=== PATIENT | male | born 1970 ===

== ENCOUNTER 2018-02-07 16:02 | Inpatient (IN) | payer MEDICARE, OTHER ==
[2018-02-07 16:33] VITALS: BMI 27.6
--- NOTE | 2018-02-07 17:16 | ED PDOC ---
Arrival/HPI - General Historian: Patient <Aiyana Farnsworth - Last Filed: 02/08/18 02:54> <Randall Vicente - Last Filed: 02/11/18 18:26> - General Chief Complaint: Psychiatric Evaluation Time Seen by Provider: 02/07/18 16:46 - History of Present Illness Narrative History of Present Illness (Text): 02/07/18 17:53 47yr old male with hx of left great toe amputation 6 days ago presents today c/ o depression with SI. pt states he is depressed because he just had his toe amputated. pt states he has hx of depression in the past. Per staff, pt has been aggressive and c/o depression. pt denies cp or sob. no vomiting/diarrhea. no dizziness or weakness. no abdominal pain. no other complaints. (Aiyana Farnsworth) Past Medical History - Provider Review Nursing Documentation Reviewed: Yes - Travel History Have you recently traveled outside US w/in the past 3 mons?: No - Infectious Disease Hx of Infectious Diseases: MRSA - Cardiac Hx Cardiac Disorders: Yes Hx Hypertension: Yes - Pulmonary Hx Respiratory Disorders: No - Neurological Hx Neurological Disorder: No - HEENT Hx HEENT Disorder: No - Renal Hx Renal Disorder: No - Endocrine/Metabolic Hx Endocrine Disorders: Yes Hx Diabetes Mellitus Type 2: Yes - Hematological/Oncological Hx Blood Disorders: No - Integumentary Hx Dermatological Disorder: No - Musculoskeletal/Rheumatological Hx Musculoskeletal Disorders: No - Gastrointestinal Hx Gastrointestinal Disorders: No - Genitourinary/Gynecological Hx Genitourinary Disorders: No - Psychiatric Hx Psychophysiologic Disorder: Yes Hx Anxiety: Yes Hx Bipolar Disorder: Yes Hx Depression: Yes Hx Hallucinations: Yes Hx Substance Use: No Other/Comment: Schizoaffective disorder - Surgical History Hx Orthopedic Surgery: Yes (right shoulder) Other/Comment: great toe of left foot 01/2018 - Anesthesia Hx Anesthesia: Yes Hx Anesthesia Reactions: No <Aiyana Farnsworth - Last Filed: 02/08/18 02:54> Family/Social History - Physician Review Nursing Documentation Reviewed: Yes Family/Social History: Unknown Family HX Smoking Status: Light Smoker < 10 Cigarettes Daily Hx Alcohol Use: Yes Frequency of alcohol use: Few days per week Hx Substance Use: No <Aiyana Farnsworth - Last Filed: 02/08/18 02:54> Allergies/Home Meds <Aiyana Farnsworth - Last Filed: 02/08/18 02:54> <Randall Vicente - Last Filed: 02/11/18 18:26> Allergies/Adverse Reactions: Allergies almond Allergy (Verified 02/07/18 16:54) ITCHING apple Allergy (Verified 02/07/18 16:53) ITCHING nut - unspecified Allergy (Verified 02/07/18 16:54) ITCHING unable to carlos chestnuts walnut Allergy (Verified 02/07/18 16:54) ITCHING Home Medications: Home Meds Medication Instructions Recorded Confirmed Acetaminophen [Tylenol 325mg tab] 650 mg PO Q4 PRN 02/07/18 02/07/18 Meropenem [Merrem IV] 1 gm .ROUTE Q8 02/07/18 02/08/18 Metformin HCl [Glucophage] 1,000 mg PO BID 02/07/18 02/07/18 Percocet 5/325 mg Tab 5 - 325 mg PO Q6 PRN 02/07/18 02/07/18 Percocet 5/325 mg Tab 5 - 325 mg PO Q6 PRN 02/07/18 02/07/18 SITagliptin [Januvia] 100 mg PO DAILY 02/07/18 02/07/18 Vancomycin [Vancomycin Inj] 1 gm IV Q12 02/07/18 02/07/18 Insulin Glargine,Hum.rec.anlog 10 units SUBCUT 02/08/18 02/08/18 Review of Systems - Review of Systems Constitutional: absent: Fatigue, Fevers Respiratory: absent: SOB, Cough Cardiovascular: absent: Chest Pain, Palpitations Gastrointestinal: absent: Abdominal Pain, Nausea, Vomiting Musculoskeletal: Arthralgias (toe pain with hx of surgery 6 days ago. ). absent: Back Pain, Neck Pain Skin: absent: Rash, Pruritis Neurological: absent: Headache, Dizziness Psychiatric: absent: Anxiety, Depression, Suicidal Ideation <Aiyana Farnsworth - Last Filed: 02/08/18 02:54> Physical Exam Vital Signs Reviewed: Yes Temperature: Afebrile Blood Pressure: Normal Pulse: Regular Respiratory Rate: Normal Appearance: Positive for: Well-Appearing, Non-Toxic, Comfortable Pain Distress: None Mental Status: Positive for: Alert and Oriented X 3 - Systems Exam Head: Present: Atraumatic Mouth: Present: Moist Mucous Membranes Neck: Present: Normal Range of Motion Respiratory/Chest: Present: Clear to Auscultation, Good Air Exchange. No: Respiratory Distress, Accessory Muscle Use Cardiovascular: Present: Regular Rate and Rhythm, Normal S1, S2. No: Murmurs Abdomen: No: Tenderness Lower Extremity: Present: NORMAL PULSES, Tenderness, Neurovascularly Intact, Other (left great toe amputation with sutures in place; no erythema; pulses intact; ). No: Erythema, Temperature Abnormalties Neurological: Present: Speech Normal Skin: Present: Warm, Dry Psychiatric: Present: Alert, Oriented x 3 <Aiyana Farnsworth - Last Filed: 02/08/18 02:54> Vital Signs Temp Pulse Resp BP Pulse Ox 02/07/18 20:00 87 18 129/79 100 02/07/18 18:23 82 17 125/80 98 02/07/18 16:42 98.0 F 85 18 128/85 99 Medical Decision Making <Aiyana Farnsworth - Last Filed: 02/08/18 02:54> <Randall Vicente - Last Filed: 02/11/18 18:26> ED Course and Treatment: 02/07/18 17:59 Patient is nontoxic well-appearing in no distress vital signs are stable. CBC WNL CMP glucose; 287 Tylenol WNL Salicylate WNL Alcohol level WNL Urine drug screen wnl UA; glucose cxr: wnl ekg: NSR at 82b/m no st elevations, normal axis. pt with pain to left great toe at surgery site; will give percocet for pain. pt is medically cleared for PES evaluation Patient was seen and evaluated by PES screener: Esequiel patient to be admitted for schizophrenia/depression. pt with PICC line; requiring vanco and meropenem for left great toe MRSA infection. case discussed with dr. beal. will admit to medical service with psych consult. Impression; schizophrenia, depression admit med/surg floor 02/08/18 02:54 (Aiyana Farnsworth) - Lab Interpretations Lab Results: 02/07/18 16:25 02/07/18 16:25 Lab Results 02/07/18 18:30: Urine Opiates Screen Positive H, Urine Methadone Screen Negative , Ur Barbiturates Screen Negative, Ur Phencyclidine Scrn Negative, Ur Amphetamines Screen Negative, U Benzodiazepines Scrn Negative, U Oth Cocaine Metabols Negative, U Cannabinoids Screen Negative 02/07/18 18:24: Urine Color Yellow, Urine Appearance Clear, Urine pH 6.5, Ur Specific [place] 1.010, Urine Protein Negative, Urine Glucose (UA) 500 H, Urine Ketones Negative, Urine Blood Negative, Urine Nitrate Negative, Urine Bilirubin Negative, Urine Urobilinogen 0.2, Ur Leukocyte Esterase Negative 02/07/18 16:25: Alcohol, Quantitative < 10 02/07/18 16:25: Salicylates < 1 L, Acetaminophen < 10.0 L 02/07/18 16:25: Sodium 134, Potassium 4.5, Chloride 95 L, Carbon Dioxide 27, Anion Gap 17, BUN 16, Creatinine 0.6 L, Est GFR ( Amer) > 60, Est GFR ( Non-Af Amer) > 60, Random Glucose 278 H, Calcium 9.5, Total Bilirubin 0.4, AST 72 H, ALT 79 H, Alkaline Phosphatase 83, Total Protein 8.1, Albumin 3.8, Globulin 4.3, Albumin/Globulin Ratio 0.9 L 02/07/18 16:25: WBC 8.0, RBC 3.92, Hgb 13.0 L, Hct 37.2 L, MCV 94.9, MCH 33.2, MCHC 34.9, RDW 12.8, Plt Count 299, MPV 11.0, Gran % 50.3, Lymph % (Auto) 37.3 H , Bay % (Auto) 8.5 H, Eos % (Auto) 2.9, Baso % (Auto) 1.0, Gran # 4.01, Lymph # (Auto) 3.0, Bay # (Auto) 0.7 H, Eos # (Auto) 0.2, Baso # (Auto) 0.08 - RAD Interpretation Radiology Orders: 02/07/18 17:01 CHEST PORTABLE [RAD] Stat - Medication Orders Current Medication Orders: Aripiprazole (Abilify) 7 mg PO HS TANGELA Clonazepam (Klonopin) 0.25 mg PO TID PRN; Protocol PRN Reason: Anxiety Last Admin: 02/11/18 11:33 Dose: 0.25 mg Behavioural Document 02/11/18 11:33 LMN (Rec: 02/11/18 11:33 LMN [id number]) Maintenance Maintenance Dose No Nonmedicinal Nonmedicinal Interventions Redirect Therapeutic Communication Activity Give food/fluids Behavior Behavior for Medication: Anxiety Dangers to self/others Hallucinations/paranoid/ delusions/extreme fear Re-Assess: Reassess Psych Meds Document 02/11/18 12:33 LMN (Rec: 02/11/18 17:42 LMN [place] [id number]) Reassess Psych Med Effective Fluoxetine HCl (Prozac) 20 mg PO DAILY [facility] Last Admin: 02/11/18 08:39 Dose: 20 mg Haloperidol (Haldol) 5 mg PO Q6 PRN; Protocol PRN Reason: Hallucinations Last Admin: 02/11/18 17:41 Dose: 5 mg Behavioural Document 02/11/18 17:41 LMN (Rec: 02/11/18 17:41 [place] [id number]) Maintenance Maintenance Dose No Nonmedicinal Nonmedicinal Interventions Redirect Therapeutic Communication Activity Give food/fluids Behavior Behavior for Medication: Anxiety Insulin Human Regular (Humulin R Low) [address] [facility] PRN Reason: Protocol Last Admin: 02/11/18 17:41 Dose: 1 units MAR Blood Glucose Document 02/11/18 17:41 LMN (Rec: 02/11/18 17:42 [place] [id number]) Blood Glucose Finger Stick Blood Glucose (70-120) 168 Subcutaneous Administrations Document 02/11/18 17:41 LMN (Rec: 02/11/18 17:42 [place] [id number]) Injection Site MAR Injection Site Right Arm Charges for Administration # of Subcutaneous Administrations 1 Metformin HCl (Glucophage) 1,000 mg PO BID [facility] Last Admin: 02/11/18 17:42 Dose: 1,000 mg Nicotine (Nicoderm Cq) 1 patch TD DAILY [facility] Last Admin: 02/11/18 10:27 Dose: 1 patch MAR Transdermal Patch Site Document 02/11/18 10:27 LMN (Rec: 02/11/18 10:27 [place] [id number]) Transdermal Patch Site Transdermal Patch Site Left Shoulder Sitagliptin Phosphate (Januvia) 100 mg PO DAILY [facility] Last Admin: 02/11/18 10:27 Dose: 100 mg Discontinued Medications Aripiprazole (Abilify) 2 mg PO HS [facility] Aripiprazole (Abilify) 2.5 mg PO HS [facility] Last Admin: 02/08/18 21:21 Dose: 2.5 mg Behavioural Document 02/08/18 21:21 [facility] (Rec: 02/08/18 21:22 [facility] [id number]) Maintenance Maintenance Dose Yes Re-Assess: Reassess Psych Meds Document 02/08/18 22:21 [facility] (Rec: 02/09/18 06:02 [facility] [id number]) Reassess Psych Med Effective Aripiprazole (Abilify) 5 mg PO HS [facility] Last Admin: 02/10/18 21:37 Dose: 5 mg Behavioural Document 02/10/18 21:37 BN (Rec: 02/10/18 21:37 BN [id number]) Maintenance Maintenance Dose Yes Re-Assess: Reassess Psych Meds Document 02/10/18 22:37 BN (Rec: 02/10/18 23:28 BN [id number]) Reassess Psych Med Effective Fluoxetine HCl (Prozac) 10 mg PO DAILY [facility] Last Admin: 02/09/18 09:13 Dose: 10 mg Fluoxetine HCl (Prozac) 10 mg PO DAILY TANGELA Stop: 02/09/18 11:46 Last Admin: 02/09/18 12:15 Dose: 10 mg Meropenem 1,000 mg/ Sodium (Chloride) 50 mls @ 100 mls/hr IVPB Q8 TANGELA PRN Reason: Protocol Stop: 02/08/18 06:29 Vancomycin HCl (Vancomycin 1gm) 1 gm in 250 mls @ 167 mls/hr IVPB STAT STA PRN Reason: Protocol Stop: 02/07/18 21:42 Last Admin: 02/07/18 22:59 Dose: 167 mls/hr eMAR Start Stop Document 02/07/18 22:59 AD (Rec: 02/07/18 22:59 AD [id number]) Intravenous Solution Start Date 02/07/18 Start Time 22:59 Meropenem 1,000 mg/ Sodium (Chloride) 50 mls @ 100 mls/hr IVPB STAT STA PRN Reason: Protocol Stop: 02/07/18 20:51 Last Admin: 02/07/18 21:01 Dose: 100 mls/hr eMAR Start Stop Document 02/07/18 21:01 AD (Rec: 02/07/18 21:02 AD [id number]) Intravenous Solution Start Date 02/07/18 Start Time 21:02 Vancomycin HCl (Vancomycin 1gm) 1 gm in 250 mls @ 167 mls/hr IVPB Q12H TANGELA PRN Reason: Protocol Last Admin: 02/08/18 07:33 Dose: 167 mls/hr eMAR Start Stop Document 02/08/18 07:33 ESTIMATE CLERK (Rec: 02/08/18 07:33 ESTIMATE CLERK [id number]) Intravenous Solution Start Date 02/08/18 Start Time 07:33 End Date 02/08/18 Meropenem (Merrem Iv 1 Gm Premix) 50 mls @ 100 mls/hr IVPB Q8 TANGELA PRN Reason: Protocol Stop: 02/08/18 14:29 Last Admin: 02/08/18 06:44 Dose: 100 mls/hr eMAR Start Stop Document 02/08/18 06:44 ESTIMATE CLERK (Rec: 02/08/18 06:44 ESTIMATE CLERK [id number]) Intravenous Solution Start Date 02/08/18 Start Time 06:44 End Date 02/08/18 Oxycodone/Acetaminophen (Percocet 5/325 Mg Tab) 1 tab PO STAT STA Stop: 02/07/18 18:29 Last Admin: 02/07/18 18:53 Dose: 1 tab MAR Pain Assessment Document 02/07/18 18:53 SF (Rec: 02/07/18 18:53 SF [id number]) Pain Reassessment Is this a pain reassessment? Yes Sleep Is patient sleeping during reassessment? No Presence of Pain Presence of Pain Yes Oxycodone/Acetaminophen (Percocet 5/325 Mg Tab) 1 tab PO STAT STA Stop: 02/07/18 21:20 Last Admin: 02/07/18 21:45 Dose: 1 tab MAR Pain Assessment Document 02/07/18 21:45 AD (Rec: 02/07/18 21:45 AD [id number]) Pain Reassessment Is this a pain reassessment? No Description Intensity of Pain at present 8 Oxycodone/Acetaminophen (Percocet 5/325 Mg Tab) 1 tab PO STAT STA Stop: 02/08/18 02:09 Last Admin: 02/08/18 02:19 Dose: 1 tab MAR Pain Assessment Document 02/08/18 02:19 ESTIMATE CLERK (Rec: 02/08/18 02:20 ESTIMATE CLERK [id number]) Pain Reassessment Is this a pain reassessment? No Sleep Is patient sleeping during reassessment? No Presence of Pain Presence of Pain Yes Pain Scale Used Pain Scale Used Numeric Location Left, Right or Bilateral Left Pain Location Body Site Foot Description Description Intermittent Intensity of Pain at present 10 Pain Behavior Facial Grimacing Alleviating Factors/Management Medication Techniques Alleviating Factors Medication Oxycodone/Acetaminophen (Percocet 5/325 Mg Tab) 2 tab PO Q6H PRN PRN Reason: Pain, severe (8-10) Stop: 02/11/18 06:32 Last Admin: 02/11/18 06:23 Dose: 2 tab MAR Pain Assessment Document 02/11/18 06:23 BN (Rec: 02/11/18 06:24 [id number]) Pain Reassessment Is this a pain reassessment? No Presence of Pain Presence of Pain Yes Pain Scale Used Pain Scale Used Numeric Location Left, Right or Bilateral Bilateral Pain Location Body Site Foot Description Description Constant Intensity of Pain at present 9 Pain Behavior Restlessness Alleviating Factors/Management Medication Techniques - PA / [employer]OPEWALK ROPE MAKER / Resident Statement MD/DO has reviewed & agrees with the documentation as recorded. <Randall Vicente - Last Filed: 02/11/18 18:26> Disposition/Present on Arrival - Present on Arrival Any Indicators Present on Arrival: Yes History of DVT/PE: No History of Uncontrolled Diabetes: Yes Urinary Catheter: No History of Decub. Ulcer: No History Surgical Site Infection Following: None - Disposition Have Diagnosis and Disposition been Completed?: Yes Disposition Time: 19:00 Patient Plan: Admission <Aiyana Farnsworth - Last Filed: 02/08/18 02:54> <Randall Vicente - Last Filed: 02/11/18 18:26> - Disposition Diagnosis: Schizophrenia, Depression Disposition: HOSPITALIZED Patient Problems: Current Active Problems Problem Status Onset Schizophrenia Acute Depression Acute Condition: FAIR
--- NOTE | 2018-02-07 17:32 | RAD ---
Date of service: 02/07/2018 HISTORY: PES COMPARISON: No prior. FINDINGS: LUNGS: The lungs are well inflated and clear. PLEURA: No significant pleural effusion identified, no pneumothorax apparent. CARDIOVASCULAR: Normal. OSSEOUS STRUCTURES: No significant abnormalities. VISUALIZED UPPER ABDOMEN: Normal. OTHER FINDINGS: None. IMPRESSION: No active pulmonary disease.
[2018-02-07 17:51] LABS: BASO # 0.08 K/mm3 (0.0-2.0); EOS # 0.2 (0.0-0.7); EOS % 2.9 % (1.5-5.0); GRAN # 4.01 (1.4-6.5); GRAN % 50.3 % (50.0-68.0); LYMPH % 37.3 % (22.0-35.0); MEAN CELL VOLUME 94.9 fl (80.0-105.0); MEAN CORPUSCULAR HEMOGLOBIN 33.2 pg (25.0-35.0); MEAN CORPUSCULAR HGB CONC 34.9 g/dl (31.0-37.0); MONO # 0.7 (0.1-0.6); MONO % 8.5 % (1.0-6.0); RBC 3.92 10^6/uL (3.5-6.1); RED CELL DISTRIBUTION WIDTH 12.8 % (11.5-14.5)
[2018-02-07 18:00] LABS: ALB/GLOB RATIO 0.9 (1.1-1.8); ALBUMIN 3.8 g/dL (3.0-4.8); ALT/SGPT 79 U/L (7-56); AST/SGOT 72 U/L (17-59); BLOOD UREA NITROGEN 16 mg/dL (7-21); CALCIUM 9.5 mg/dL (8.4-10.5); GFR AFRICAN-AMERICAN > 60; GFR NON-AFRICAN AMERICAN > 60
[2018-02-07 18:01] LABS: ACETAMINOPHEN < 10.0 ug/ml (10.0-20.0); SALICYLATE < 1 mg/dL (2.0-20.0)
[2018-02-07] MEDS ORDERED: Oxycodone/Acetaminophen 5/325 mg Tab PO STA ×2 (18:28→21:19)
[2018-02-07 18:34] LABS: PH,URINE 6.5 (4.7-8.0); URINE BILIRUBIN NEGATIVE (NEGATIVE); URINE BLOOD NEGATIVE (NEGATIVE); URINE GLUCOSE (UA) 500 mg/dL (NEGATIVE); URINE LEUKOCYTE ESTERASE NEGATIVE Leu/uL (NEGATIVE); URINE PROTEIN NEGATIVE mg/dL (<30 mg/dL); URINE UROBILINOGEN 0.2 E.U./dL (<1 E.U./dL)
[2018-02-07 18:36] LABS: URINE APPEARANCE CLEAR (CLEAR); URINE COLOR YELLOW (YELLOW)
--- NOTE | 2018-02-07 18:48 | CARD ---
APPROVED REPORT Date of service: 02/07/2018 EKG Measurement Heart [id number] <Conclusion> Normal sinus rhythm Normal ECG
[2018-02-07 19:08] LABS: BARBITURATES, UR NEGATIVE (NEGATIVE); BENZODIAZEPINES, UR NEGATIVE (NEGATIVE); OPIATES, UR POSITIVE (NEGATIVE); PHENCYCLIDINE, UR NEGATIVE (NEGATIVE)
[2018-02-07] MEDS ORDERED: Vancomycin 1gm in NS 250ml 1 GM/250 ML BAG IVPB STA (20:13)
[2018-02-08] MEDS ORDERED: Oxycodone/Acetaminophen 5/325 mg Tab PO STA (02:08)
[2018-02-08] MEDS ORDERED: Oxycodone/Acetaminophen 5/325 mg Tab PO PRN (06:28)
[2018-02-08] MEDS ORDERED: Meropenem 500 MG in Sodium Chloride 0.9% 50 ML IVPB SCH (06:30)
[2018-02-08] MEDS ORDERED: Vancomycin 1gm in NS 250ml 1 GM/250 ML BAG IVPB SCH (06:30)
[2018-02-08] MEDS ORDERED: Meropenem IV 1 gm in NS 50 ML IVPB SCH (06:30)
[2018-02-08] MEDS: Oxycodone/Acetaminophen 5/325 mg Tab PO PRN ×3 (06:46→18:23)
[2018-02-08] MEDS: Insulin Reg-LOW-Coverage SC SCH ×4 (08:30→22:18)
[2018-02-09] MEDS: Oxycodone/Acetaminophen 5/325 mg Tab PO PRN ×3 (00:23→18:11)
--- NOTE | 2018-02-09 01:44 | CON ---
Copied To: Darrin Arceo MD Attending MD: Darrin Arceo MD DATE: 02/08/2018 CHIEF COMPLAINT: Left big toe infection x3 weeks duration. HISTORY OF PRESENT ILLNESS: This is a 47-year-old male with past medical history significant for diabetes mellitus, hypertension and high cholesterol with anxiety, alcohol abuse, history of depression, bipolar and panic disorder, history of right shoulder surgery and was admitted through the Emergency Room was seen by Aiyana Farnsworth. In the Emergency Room, the patient had stated that he had a left great toe amputation six days ago and complaining of depression and Infectious Disease consultation requested. REVIEW OF SYSTEMS: A 12-point review of systems is performed. There are no fevers, no chills, no nausea, no vomiting and no abdominal pain, diarrhea or constipation. No dysuria. PAST MEDICAL HISTORY: Significant for diabetes mellitus, hypertension, high cholesterol, anxiety, depression, bipolar, panic, alcohol abuse and tobacco abuse. PAST SURGICAL HISTORY: Significant for right shoulder surgery. ALLERGIES: THE PATIENT HAS NO KNOWN ALLERGIES TO ANTIBIOTICS. HE IS ALLERGIC TO ALMOND, APPLES, NUTS AND WALNUTS. PHYSICAL EXAMINATION: VITAL SIGNS: The patient is in bed with a temperature of 97, blood pressure is 116/80, respiratory rate of 18, heart rate of 85. HEENT: Examination is unremarkable. NECK: Supple. LUNGS: Have decreased breath sounds. HEART: Normal S1, S2. ABDOMEN: Soft, nontender. EXTREMITIES: On examination of right foot, there is an ulcer at the base of his right foot. On examination of the big toe of the left foot, surgical site appears to be clean. DATA: Laboratory examination reveals a white count of 8000, hemoglobin of 13, platelets of 299. Chemistries reveal a BUN of 16, creatinine of 0.6, LFT elevations. Urinalysis is unremarkable and the patient does have opiates. No other Microbiology is available. The patient also had a chest x-ray, which is reported to be negative. The patient also had an EKG that showed a QTc of 450. ASSESSMENT AND PLAN: This is a 47-year-old male with: 1. Status post amputation of the left big toe, site appears to be clean and no evidence of any infection at this site with no fevers, no chills, no erythema. It would be ideal to obtain a pathology report from the amputation site if possible Hospital where an amputation was done. The patient has never been in [facility]. We will order a sedimentation rate, C-reactive protein and HIV test. We will hold off on the antibiotics for now. Recommend to obtain pathology report from the surgical site, order for hospital he was in, recommended podiatric consultation. We will hold off any antibiotics at this time since there are no obvious site. The wound a appears to be clean and dry. We will follow with you. Darrin Arceo MD
--- NOTE | 2018-02-09 08:10 | CON ---
Copied To: Diego Lo MD Attending MD: Diego Lo MD DATE: 02/08/2018 HISTORY OF PRESENT ILLNESS: The patient is a 47-year-old single male with a history of schizoaffective disorder and a history of prior psychiatric hospitalizations. Current outpatient psychiatric treatment with Dr. Schultz and was in [place] for the last one month though not compliant with medications, who has been seen on the medical floor with IV antibiotics after just having his toe amputated secondary to depression, agitation, and hallucinations. I met with the patient at bedside and he is calm, cooperative, alert and well oriented to year location circumstances. The patient confirms that he has been depressed and hearing voices. The voices tell him to symptoms of low mood, , low energy, anxiety, crying spells, feeling easily overwhelmed and currently denies having any suicidal thoughts. However, he does have a history of multiple suicide attempts in the past. Main issues are his medical issues likely financial. The patient also is unhappy with where he was getting his IV antibiotics. Presently, he is agreeable to start psychiatric medications for his symptoms and we discussed initiation of Prozac, Klonopin and Abilify. His thought process is currently coherent and he does not appear to be responding to internal stimuli and demonstrates fair insight and judgement. SOCIAL HISTORY: The patient is born in [place], 9 months mostly he was there. He is not , he has no children. He lives with his ex-girlfriend. However, he has been living nurses at home because he requires IV antibiotic for toe amputation. 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 Denies issues with alcohol and drugs. PSYCHIATRIC HISTORY: The patient injections with insulin and he also calf scar was noted by this provider. The patient is on relevant psychiatric medications at this time. Vital signs and labs were reviewed. IMPRESSION: Schizoaffective disorder, current episodes with psychotic symptoms. RECOMMENDATIONS: 1. We will start Prozac for depression and anxiety 10 mg p.o. daily, I have reviewed indication, dozing, therapeutic latency and possible side effects with patient today. 2. I will start Abilify 10 mg at bedtime to augment Prozac for depression as well as target history of hallucination in the patient and also to help with mood control. I reviewed indications and possible side effects including metabolic syndrome with the patient today. 3. I will start low dose Klonopin 0.25 mg p.o. three times a day p.r.n. for anxiety to during the initial part of prescribing this medications. 4. I will continue to follow with the patient on the medical floor and evaluate tolerance to medications as well as symptoms. Diego Lo MD
[2018-02-09] MEDS: Insulin Reg-LOW-Coverage SC SCH ×3 (08:37→16:58)
--- NOTE | 2018-02-09 08:43 | HP ---
02/08/18 Copied To: Li Siddiqi MD Attending MD: Li Siddiqi MD CHIEF COMPLAINT: Depression. HISTORY OF PRESENT ILLNESS: Mr. Martinez is a 47-year-old male with a history of left great toe amputation 6 days ago, came to the emergency room, complaining about depression because he just had the toe amputated. He states that he has a history of degenerative joint disease in the past, had aggressive treatment, complaining about depression. Patient denies chest pain or shortness of breath. No nausea, vomiting, or diarrhea. No fever. No chills. No headache. No dizziness. PAST MEDICAL HISTORY: As above, history of MRSA, hypertension, diabetes mellitus type 2, anxiety, schizophrenia, right shoulder pain, great toe of left foot amputation. FAMILY HISTORY: Father and mother, noncontributory. HABITS: Light smoker, less than 10 cigarettes. Alcohol, yes. Substance abuse, no. ALLERGIES: ALLERGIC WITH ALMOND ALLERGY, APPLE ALLERGY, UNSPECIFIED ALLERGIES, WALNUT ALLERGIES. HOME MEDICATIONS: Tylenol, Merrem, Glucophage, Percocet, Januvia, verapamil, insulin. REVIEW OF SYSTEMS: Patient was seen and examined on the bedside, looking comfortable except for pain in the toe. Depression is better, shortness of breath and cough is better. tired. No fever. No chills. Abdominal pain, nausea, vomiting negative at this moment. Toe pain, arthralgia, amputation of toe 6 days ago, back pain, rashes, pruritus, headache , dizziness. No anxiety or depression. PHYSICAL EXAMINATION: VITAL SIGNS: Temperature , pulse 85, respiratory rate 18, blood pressure 120/85, pulse oximetry 99. HEENT: Head: Normocephalic, atraumatic. Eyes: PERRLA. Extraocular muscles intact. Conjunctivae clear. Nose patent. Mucous membrane moist. NECK: Supple. No carotid bruit. No JVD or thyromegaly. CHEST: Bilaterally symmetrical. HEART: S1 and S2 positive. LUNGS: Clear to auscultation. ABDOMEN: Soft. Bowel sounds positive. No organomegaly. EXTREMITIES: No edema. No cyanosis. NEUROLOGIC: Patient is awake and alert. Moving all 4 extremities. No focal deficit. LABORATORY DATA: White blood cells 9, hemoglobin 13.3, hematocrit 37.2, platelets 291. Sodium 137, potassium 4.5, BUN 15, creatinine is 0.6, glucose 278. ASSESSMENT AND PLAN: Mr. Martinez is a 47-year-old male with anemia, renal insufficiency, hypochloremia, hyperglycemia, is admitted with depression, schizophrenia. Consult called with . Repeat labs. We will follow up. Li Siddiqi MD MTDD
--- NOTE | 2018-02-09 14:17 | CP.PCM.CON ---
<Jorge,Moisésedisonanna - Last Filed: 02/09/18 14:07> History of Present Illness - History of Present Illness History of Present Illness: Podiatry Consult note: Dr. Coker 47 year old male patient with psychiatric hx was seen and evaluated at bedside 8 days s/p partial hallux amputation on the left and right plantar wound. Patient reports that he had the procedure done by Dr. Angela. Reports that he came to the hospital c/o depression and SI. Patient reports that he follows up with Dr. Angela as an outpatient basis. Patient denies of any pedal complains at this time. Patient denies of any pain to the feet. Denies of recent F/N/V/C/ SOB/CP/headache. Denies of any other pedal complains at this time. Review of Systems - Constitutional Constitutional: As Per HPI Past Patient History - Infectious Disease Hx of Infectious Diseases: MRSA - Past Social History Smoking Status: Light Smoker < 10 Cigarettes Daily - CARDIAC Hx Cardiac Disorders: Yes Hx Hypertension: Yes - PULMONARY Hx Respiratory Disorders: No - NEUROLOGICAL Hx Neurological Disorder: No - HEENT Hx HEENT Problems: No - RENAL Hx Chronic Kidney Disease: No - ENDOCRINE/METABOLIC Hx Endocrine Disorders: Yes Hx Diabetes Mellitus Type 2: Yes - HEMATOLOGICAL/ONCOLOGICAL Hx Blood Disorders: No - INTEGUMENTARY Hx Dermatological Problems: No - MUSCULOSKELETAL/RHEUMATOLOGICAL Hx Musculoskeletal Disorders: No - GASTROINTESTINAL Hx Gastrointestinal Disorders: No - GENITOURINARY/GYNECOLOGICAL Hx Genitourinary Disorders: No - PSYCHIATRIC Hx Psychophysiologic Disorder: Yes Hx Anxiety: Yes Hx Bipolar Disorder: Yes Hx Depression: Yes Hx Hallucinations: Yes Hx Substance Use: No Other/Comment: Schizoaffective disorder - SURGICAL HISTORY Hx Orthopedic Surgery: Yes (right shoulder) Other/Comment: great toe of left foot 01/2018 - ANESTHESIA Hx Anesthesia: Yes Hx Anesthesia Reactions: No Meds Allergies/Adverse Reactions: Allergies Allergy/AdvReac Type Severity Reaction Status Date / Time almond Allergy ITCHING Verified 02/07/18 16:54 apple Allergy ITCHING Verified 02/07/18 16:53 nut - unspecified Allergy ITCHING Verified 02/07/18 16:54 walnut Allergy ITCHING Verified 02/07/18 16:54 - Medications Medications: Current Medications Aripiprazole (Abilify) 5 mg PO HS [facility] Clonazepam (Klonopin) 0.25 mg PO TID PRN; Protocol PRN Reason: Anxiety Last Admin: 02/09/18 08:37 Dose: 0.25 mg Fluoxetine HCl (Prozac) 20 mg PO DAILY [facility] Insulin Human Regular (Humulin R Low) 0 units SC ACHS [facility] PRN Reason: Protocol Last Admin: 02/09/18 12:14 Dose: 3 units Metformin HCl (Glucophage) 1,000 mg PO BID [facility] Last Admin: 02/09/18 09:13 Dose: 1,000 mg Nicotine (Nicoderm Cq) 1 patch TD DAILY [facility] Last Admin: 02/09/18 09:13 Dose: 1 patch Oxycodone/Acetaminophen (Percocet 5/325 Mg Tab) 2 tab PO Q6H PRN PRN Reason: Pain, severe (8-10) Stop: 02/11/18 06:32 Last Admin: 02/09/18 06:10 Dose: 2 tab Sitagliptin Phosphate (Januvia) 100 mg PO DAILY [facility] Last Admin: 02/09/18 09:13 Dose: 100 mg Physical Exam - Constitutional Appears: Well, Non-toxic, No Acute Distress - Extremities Exam Additional comments: VASC: DP/PT pulses are palpable 1/4, Cap refill time: < 3 sec to all digits, Temp gradient: warm to cool from proximal to distal, no pitting or non-pitting edema noted DERM: Surgical site is intact with sutures with no dehiscence, no active drainage, no malodor, no erythema no clinical suspicion of active infection; wound measuring approx 1.5 cm x 1.0 cm on the plantar lateral aspect of the right foot sub metatarsal head 4, wound base is mainly grannular, no active drainage, no malodor, no probe to bone, no clinical suspicion of active infection NEURO: Protective sensation is mildly diminished ORTHO: mild pain on palpation of the plantar wound - Neurological Exam Neurological exam: Alert, Oriented x3 - Psychiatric Exam Psychiatric exam: Normal Affect, Normal Mood Results - Vital Signs Recent Vital Signs: Last Vital Signs Temp 98.2 F 02/09/18 06:00 Pulse 74 02/09/18 06:00 Resp 20 02/09/18 06:00 BP 107/77 02/09/18 06:00 Pulse Ox 95 02/09/18 06:00 - Labs Result Diagrams: 02/07/18 16:25 02/07/18 16:25 Labs: Laboratory Results - last 24 hr 02/08/18 02/08/18 02/08/18 11:25 16:15 20:59 ESR POC Glucose (mg/dL) 279 H 174 H 187 H C-Reactive Protein 02/09/18 02/09/18 02/09/18 06:42 06:45 06:45 ESR 78 H POC Glucose (mg/dL) 258 H C-Reactive Protein 13.30 H 02/09/18 11:41 ESR POC Glucose (mg/dL) 258 H C-Reactive Protein Assessment & Plan - Assessment and Plan (Free Text) Assessment: 47 year old male was evaluated 1). 8 days s/p partial left hallux amp 2). non- infected plantar right foot wound (Monet 1) Plan: Patient seen and evaluated with attending Dr. Coker Labs, vitals and charts reviewed - afebrile, no leukocytosis IV abx as per ID - hx of MRSA Sites cleaned with saline and dressing applied using betadine, DSD Patient to WBAT in surgical shoe Stable from podiatry standpoint Will continue to follow patient while in-house Thank you for the podiatry consult and allowing to take part in patient care - Date & Time Date: 02/09/18 Time: 14:25 <Lukas Coker - Last Filed: 02/09/18 17:08> Meds - Medications Medications: Current Medications Aripiprazole (Abilify) 5 mg PO HS [facility] Clonazepam (Klonopin) 0.25 mg PO TID PRN; Protocol PRN Reason: Anxiety Last Admin: 02/09/18 16:58 Dose: 0.25 mg Fluoxetine HCl (Prozac) 20 mg PO DAILY [facility] Insulin Human Regular (Humulin R Low) 0 units SC ACHS [facility] PRN Reason: Protocol Last Admin: 02/09/18 16:58 Dose: 1 units Metformin HCl (Glucophage) 1,000 mg PO BID [facility] Last Admin: 02/09/18 09:13 Dose: 1,000 mg Nicotine (Nicoderm Cq) 1 patch TD DAILY [facility] Last Admin: 02/09/18 09:13 Dose: 1 patch Oxycodone/Acetaminophen (Percocet 5/325 Mg Tab) 2 tab PO Q6H PRN PRN Reason: Pain, severe (8-10) Stop: 02/11/18 06:32 Last Admin: 02/09/18 06:10 Dose: 2 tab Sitagliptin Phosphate (Januvia) 100 mg PO DAILY [facility] Last Admin: 02/09/18 09:13 Dose: 100 mg Results - Vital Signs Recent Vital Signs: Last Vital Signs Temp 98.2 F 02/09/18 14:00 Pulse 86 02/09/18 14:00 Resp 18 02/09/18 14:00 BP 110/81 02/09/18 14:00 Pulse Ox 100 02/09/18 14:00 - Labs Result Diagrams: 02/07/18 16:25 02/07/18 16:25 Labs: Laboratory Results - last 24 hr 02/08/18 02/09/18 02/09/18 20:59 06:42 06:45 ESR 78 H POC Glucose (mg/dL) 187 H 258 H C-Reactive Protein 02/09/18 02/09/18 02/09/18 06:45 11:41 15:56 ESR POC Glucose (mg/dL) 258 H 170 H C-Reactive Protein 13.30 H Attending/Attestation - Attestation I have personally seen and examined this patient.: Yes I have fully participated in the care of the patient.: Yes I have reviewed all pertinent clinical information: Yes
--- NOTE | 2018-02-09 15:42 | CP.PCM.PN ---
Subjective - Date & Time of Evaluation Date of Evaluation: 02/09/18 Time of Evaluation: 13:50 - Subjective Subjective: Still with pain in the feet, no fevers, not in distress. Objective - Vital Signs/Intake and Output Vital Signs (last 24 hours): Temp Pulse Resp BP Pulse Ox 98.2 F 86 18 110/81 100 02/09/18 14:00 02/09/18 14:00 02/09/18 14:00 02/09/18 14:00 02/09/18 14:00 Intake and Output: 02/09/18 02/09/18 06:59 18:59 Intake Total 860 Balance 860 - Medications Medications: Current Medications Aripiprazole (Abilify) 5 mg PO HS [facility] Clonazepam (Klonopin) 0.25 mg PO TID PRN; Protocol PRN Reason: Anxiety Last Admin: 02/09/18 08:37 Dose: 0.25 mg Fluoxetine HCl (Prozac) 20 mg PO DAILY [facility] Insulin Human Regular (Humulin R Low) 0 units SC ACHS [facility] PRN Reason: Protocol Last Admin: 02/09/18 12:14 Dose: 3 units Metformin HCl (Glucophage) 1,000 mg PO BID [facility] Last Admin: 02/09/18 09:13 Dose: 1,000 mg Nicotine (Nicoderm Cq) 1 patch TD DAILY [facility] Last Admin: 02/09/18 09:13 Dose: 1 patch Oxycodone/Acetaminophen (Percocet 5/325 Mg Tab) 2 tab PO Q6H PRN PRN Reason: Pain, severe (8-10) Stop: 02/11/18 06:32 Last Admin: 02/09/18 06:10 Dose: 2 tab Sitagliptin Phosphate (Januvia) 100 mg PO DAILY [facility] Last Admin: 02/09/18 09:13 Dose: 100 mg - Constitutional Appears: Chronically Ill - Head Exam Head Exam: NORMAL INSPECTION - ENT Exam ENT Exam: Mucous Membranes Moist - Neck Exam Neck Exam: absent: Meningismus - Respiratory Exam Respiratory Exam: Decreased Breath Sounds - Cardiovascular Exam Cardiovascular Exam: +S1, +S2 - GI/Abdominal Exam GI & Abdominal Exam: Soft. absent: Tenderness - Extremities Exam Additional comments: left foot with dressings in place Assessment and Plan - Assessment and Plan (Free Text) Plan: Assessment history of left hallux osteomyelitis S/P amputation 7 days ago DM HTN dyslipidemia anxiety disorder ethanol abuse depression bipolar disorder history of right shoulder surgery Plan Will continue to monitor off antibiotics; recommend to get pathology report of the amputated toe (to check for margins of the bone if they are clear) as per patient, they found MRSA in his left hallux ESR, CRP elevated - recommend to get pathology report of the left hallux check HIV test will monitor clinically
--- NOTE | 2018-02-09 15:42 | CON ---
Copied To: Diego Lo MD Attending MD: Diego Lo MD DATE: 02/09/2018 HISTORY OF PRESENT ILLNESS: The patient is a 47-year-old single male with a history of schizoaffective disorder, who is being treated on the medical floor with IV antibiotics secondary to the patient's toe amputation. Psychiatrist is following the patient since yesterday due to history of depression, hearing voices. At that time, I started Prozac 10 mg daily as well as Abilify 2.5 mg at bedtime and Klonopin p.r.n. The patient reported this is because of the patient's reports of depression and hallucination as well as anxiety. I met with the patient again at bedside this morning and the patient reports some improvement in his symptoms. He denies having any hallucinations in the last 24 hours. He reports of little bit more energy and improved outlook, although he still remains depressed. He denies any hopelessness or suicidal thoughts. He is generally coherent. Responses are consistent with questioning. He denies having any side effects from the medications prescribed and has been cooperative and calm on the medical floor while he has been treated. His affects are constricted; however, there is no reactivity. He does not appear to be responding to internal stimuli and delusions were not elicited. Insight and judgment is improving. MEDICATIONS: Relevant psychiatric medications include Prozac 10 mg daily, Abilify 2.5 mg at bedtime as well as Klonopin 0.25 mg p.o. t.i.d. p.r.n. IMPRESSION: Schizoaffective disorder by history, current episode is depressed with psychotic symptoms. RECOMMENDATIONS: 1. We will increase Prozac to a minimal therapeutic dose of 20 mg daily as the patient tolerated 10 mg yesterday. 2. I will continue Abilify and increase it to 5 mg at bedtime to augment Prozac for depression and target history of hallucination and also to help with mood control. 3. I will continue with Klonopin 0.25 mg p.o. t.i.d. p.r.n. for anxiety. 4. I will continue to follow the patient on the medical floor and evaluate tolerance to medications as well as symptomatology. Diego Lo MD [facility] # [id number]
[2018-02-10] MEDS: Oxycodone/Acetaminophen 5/325 mg Tab PO PRN ×4 (00:15→18:21)
--- NOTE | 2018-02-10 01:47 | PN ---
Copied To: Li Siddiqi MD Attending MD: Li Siddiqi MD DATE: 02/09/2018 SUBJECTIVE: Patient is a 47-year-old male. Patient is seen and examined in his bed in his room. was sitting on the bedside, still has pain in the feet. No fever. No chills. Not in distress. No headache. No dizziness. No hematuria or hematochezia. PHYSICAL EXAMINATION: VITAL SIGNS: Temperature 98.2, pulse 86, respiratory rate 18, blood pressure 110/81, pulse oximetry 100%. HEENT: Head: Normocephalic, atraumatic. Eyes: PERRLA. Extraocular muscles intact. Conjunctivae clear. Nose patent. Mucous membrane moist. NECK: Supple. No carotid bruit, JVD, or thyromegaly. CHEST: Bilaterally symmetrical. HEART: S1 and S2 positive. LUNGS: Clear to auscultation. ABDOMEN: Soft. Bowel sounds present. No organomegaly. EXTREMITIES: No edema. No cyanosis. NEUROLOGIC: Patient is awake and alert. Moving all four extremities. No focal deficit. MEDICATIONS: Abilify, Klonopin, Prozac, insulin, Glucophage, Nicoderm, Percocet, and Januvia. LABORATORY DATA: White blood cells 8, hemoglobin 13, hematocrit 37.2, platelets 299. Glucose 170, 258, 258. C-reactive protein is 13.3. Urine has glucose. ASSESSMENT AND PLAN: Mr. Henrry Martinez is a 47-year-old male with anemia; diabetes mellitus, uncontrolled; glucosuria; opioids positive in the toxicology. Rapid plasma reagin negative. Seen by the ID, Dr. Jewel Champagne. History of left hallux osteomyelitis, status post amputation 7 days ago; diabetes mellitus; hypertension; dyslipidemia; anxiety disorder, ethanol abuse, depression; bipolar; history of right shoulder surgery and according to ID, continue monitoring of antibiotics. Recommended to get Pathology report of the amputating the toes to check for markings of the bone if they are clear. According to patient, they found Methicillin-resistant Staphylococcus aureus in the left hallux. Erythrocyte sedimentation rate and C-reactive protein elevated. Recommended to get Pathology report of the left hallux valgus. Check human immunodeficiency virus status. Waiting for ID input about getting report from the facility. Seen by the Podiatry, Dr. Lukas Coker and Psych, Dr. Diego Lo. GI and deep vein thrombosis prophylaxes. Repeat labs. Discussion done with the patient's and patient. All questions answered. Li Siddiqi MD [id number]
[2018-02-10 06:54] LABS: HEMOGLOBIN 12.3 g/dL (14.0-18.0); MEAN CELL VOLUME 94.2 fl (80.0-105.0); MEAN CORPUSCULAR HEMOGLOBIN 32.5 pg (25.0-35.0); MEAN CORPUSCULAR HGB CONC 34.6 g/dl (31.0-37.0); MEAN PLATELET VOLUME 10.2 fl (7.0-11.0); RBC 3.78 10^6/uL (3.5-6.1); RED CELL DISTRIBUTION WIDTH 12.3 % (11.5-14.5)
[2018-02-10 07:08] LABS: BLOOD UREA NITROGEN 12 mg/dL (7-21); CALCIUM 9.1 mg/dL (8.4-10.5); GFR AFRICAN-AMERICAN > 60; GFR NON-AFRICAN AMERICAN > 60
--- NOTE | 2018-02-10 08:27 | CP.PCM.PN ---
<JorgeMoisésedisonanna - Last Filed: 02/10/18 08:22> Subjective - Date & Time of Evaluation Date of Evaluation: 02/10/18 Time of Evaluation: 08:22 - Subjective Subjective: Podiatry progress note: Dr. Coker 47 year old male patient was seen and evaluated at bedside 9 days s/p partial hallux amputation on the left and right plantar wound. Patient is AAOx3 and denies of any acute overnight events. No acute pain to bilateral LE. Denies of recent F/N/V/C/SOB/CP/headache. Denies of any other pedal complains at this time. Objective - Vital Signs/Intake and Output Vital Signs (last 24 hours): Temp Pulse Resp BP Pulse Ox 98.4 F 90 18 106/74 94 L 02/09/18 21:23 02/09/18 21:23 02/09/18 21:23 02/09/18 21:23 02/09/18 21:23 Intake and Output: 02/10/18 02/10/18 06:59 18:59 Intake Total 820 Output Total 1 Balance 819 - Medications Medications: Current Medications Aripiprazole (Abilify) 5 mg PO HS [facility] Last Admin: 02/09/18 22:12 Dose: 5 mg Clonazepam (Klonopin) 0.25 mg PO TID PRN; Protocol PRN Reason: Anxiety Last Admin: 02/09/18 16:58 Dose: 0.25 mg Fluoxetine HCl (Prozac) 20 mg PO DAILY [facility] Insulin Human Regular (Humulin R Low) 0 units SC ACHS [facility] PRN Reason: Protocol Last Admin: 02/09/18 16:58 Dose: 1 units Metformin HCl (Glucophage) 1,000 mg PO BID [facility] Last Admin: 02/09/18 18:12 Dose: 1,000 mg Nicotine (Nicoderm Cq) 1 patch TD DAILY [facility] Last Admin: 02/09/18 09:13 Dose: 1 patch Oxycodone/Acetaminophen (Percocet 5/325 Mg Tab) 2 tab PO Q6H PRN PRN Reason: Pain, severe (8-10) Stop: 02/11/18 06:32 Last Admin: 02/10/18 05:35 Dose: 2 tab Sitagliptin Phosphate (Januvia) 100 mg PO DAILY [facility] Last Admin: 02/09/18 09:13 Dose: 100 mg - Labs Labs: 02/10/18 06:30 02/10/18 06:30 - Constitutional Appears: Well, Non-toxic, No Acute Distress - Extremities Exam Additional comments: VASC: DP/PT pulses are palpable 1/4, Cap refill time: < 3 sec to all digits, Temp gradient: warm to cool from proximal to distal, no pitting or non-pitting edema noted DERM: Surgical site is intact with sutures with no dehiscence, no active drainage, no malodor, no erythema no clinical suspicion of active infection; wound measuring approx 1.5 cm x 1.0 cm on the plantar lateral aspect of the right foot sub metatarsal head 4, wound base is mainly grannular, no active drainage, no malodor, no probe to bone, no clinical suspicion of active infection NEURO: Protective sensation is mildly diminished ORTHO: mild pain on palpation of the plantar wound - Neurological Exam Neurological Exam: Alert, Awake, Oriented x3 - Psychiatric Exam Psychiatric exam: Normal Affect, Normal Mood Assessment and Plan - Assessment and Plan (Free Text) Assessment: 47 year old male was evaluated 1). 9 days s/p partial left hallux amp 2). non- infected plantar right foot wound (Monet 1) Plan: Patient seen and evaluated with attending Dr. Coker Labs, vitals and charts reviewed - afebrile, no leukocytosis ID on board - hx of MRSA Surgical site is fully intact with no active drainage Sites cleaned with saline and dressing applied using betadine, DSD Patient to WBAT in surgical shoe Stable from podiatry standpoint Will continue to follow patient while in-house <Lukas Coker - Last Filed: 02/12/18 09:44> Objective - Vital Signs/Intake and Output Vital Signs (last 24 hours): Temp Pulse Resp BP Pulse Ox 98 F 101 H 20 98/72 L 98 02/12/18 08:00 02/12/18 08:00 02/12/18 08:00 02/12/18 08:00 02/12/18 08:00 Intake and Output: 02/12/18 02/12/18 06:59 18:59 Intake Total 360 320 Balance 360 320 - Medications Medications: Current Medications Aripiprazole (Abilify) 7 mg PO HS [facility] Last Admin: 02/11/18 21:52 Dose: 7 mg Clonazepam (Klonopin) 0.25 mg PO TID PRN; Protocol PRN Reason: Anxiety Last Admin: 02/12/18 09:16 Dose: 0.25 mg Fluoxetine HCl (Prozac) 20 mg PO DAILY [facility] Last Admin: 02/12/18 09:15 Dose: 20 mg Haloperidol (Haldol) 5 mg PO Q6 PRN; Protocol PRN Reason: Hallucinations Last Admin: 02/12/18 07:55 Dose: 5 mg Insulin Human Regular (Humulin R Low) 0 units SC ACHS [facility] PRN Reason: Protocol Last Admin: 02/12/18 07:55 Dose: 3 units Metformin HCl (Glucophage) 1,000 mg PO BID [facility] Last Admin: 02/12/18 09:15 Dose: 1,000 mg Nicotine (Nicoderm Cq) 1 patch TD DAILY [facility] Last Admin: 02/12/18 09:15 Dose: 1 patch Oxycodone/Acetaminophen (Percocet 5/325 Mg Tab) 2 tab PO Q6H PRN PRN Reason: Pain, severe (8-10) Stop: 02/14/18 21:05 Last Admin: 02/12/18 06:40 Dose: 2 tab Sitagliptin Phosphate (Januvia) 100 mg PO DAILY [facility] Last Admin: 02/12/18 09:15 Dose: 100 mg - Labs Labs: 02/10/18 06:30 02/10/18 06:30 Attending/Attestation - Attestation I have personally seen and examined this patient.: Yes I have fully participated in the care of the patient.: Yes I have reviewed all pertinent clinical information, including history, physical exam and plan: Yes
[2018-02-10] MEDS: Insulin Reg-LOW-Coverage SC SCH ×4 (08:33→22:28)
--- NOTE | 2018-02-10 13:31 | PN ---
Copied To: Darrin Arceo MD Attending MD: Darrin Arceo MD DATE: 02/10/2018 PHYSICAL EXAMINATION: VITAL SIGNS: Temperature is 98, blood pressure is 107/70, respiratory rate of 18, heart rate of 84. HEENT: Unremarkable. NECK: Supple. LUNGS: Decreased breath sounds. HEART: Normal S1, S2. ABDOMEN: Soft, nontender. LABORATORY EXAMINATION: Reveals a white count of 6, hemoglobin of 12, and platelets of 258. Chemistries reveal a BUN of 12, creatinine of 0.6. C-reactive protein is noted. Microbiology is reviewed and review of orders reveals the patient to be on no antibiotics and Dr. Jorge's note is reviewed. Dr. Siddiqi's note is reviewed from yesterday. ASSESSMENT AND PLAN: This is a 47-year-old male who was seen earlier this morning in 578, bed 2 with history of left hallux osteomyelitis, status post amputation 8 days ago; diabetic; hypertensive; dyslipidemia; anxiety; depression; bipolar; currently off of antibiotics. Awaiting for bone pathology report and currently off antibiotics. Afebrile and no evidence of infection on exam. The patient's human immunodeficiency virus is negative. Rapid plasma reagin is negative. We will follow with you. Darrin Arceo MD
--- NOTE | 2018-02-10 17:58 | CON ---
Copied To: Diego Lo MD Attending MD: Diego Lo MD DATE: 02/10/2018 HISTORY OF PRESENT ILLNESS: The patient is a 47-year-old single male with a history of schizoaffective disorder was being treated on the medical site with IV antibiotics secondary to patient's toe amputation few days ago. Psychiatry is following the patient due to his symptoms of depression and auditory hallucinations, which appear to have improved over the last 2 days after starting Prozac, Abilify, and Klonopin. I met with the patient at bedside again today and he continues to be calm, coherent, cooperative and more oriented to month, year, location and circumstances. The patient reports resolution of hallucinations and he continues to be depressed and he is feeling better. Denies any suicidal thoughts, thoughts to harm others. He does not appear to be paranoid or responding to internal stimuli and he generally appears well related and simple. There have been no behavioral issues on the unit and patient denies any side effects from the medications and denied any major issues of sleep last night. RELEVANT PSYCHIATRIC MEDICATIONS: Include Prozac 20 mg daily, Abilify 5 mg at bedtime as well as Klonopin 0.25 mg p.o. t.i.d. p.r.n. IMPRESSION: Schizoaffective disorder by history, current episode is depressive, psychotic symptoms improving with initiation of Prozac, Abilify and Klonopin. RECOMMENDATIONS: We will continue with Prozac 20 mg daily and Abilify 5 mg at bedtime as well as Klonopin 0.5 mg p.o. t.i.d. p.r.n. The patient has been stable and does not present as a danger to himself or others and is tolerating his medications and differs on inpatient psychiatric hospitalization. The patient should continue with these medications as an outpatient and Psychiatry will signoff at this time. Please reconsult p.r.n. Diego Lo MD
--- NOTE | 2018-02-10 23:43 | PN ---
Copied To: Li Siddiqi MD Attending MD: Li Siddiqi MD DATE: 02/10/2018 SUBJECTIVE: The patient is looking comfortable. No fever. No chills. No headache. No dizziness. No chest pain. No palpitation. No nausea, vomiting, diarrhea. PHYSICAL EXAMINATION: VITAL SIGNS: Temperature 98, blood pressure 107/70, respiratory rate 18, heart rate 84. HEENT: Head normocephalic, atraumatic. Eyes PERRLA. Extraocular muscles intact. Conjunctivae clear. Nose patent. Mucous membrane moist. NECK: Supple. No carotid bruit. No JVD or thyromegaly. CHEST: Bilaterally symmetrical. HEART: S1 and S2 positive. LUNGS: Clear to auscultation. ABDOMEN: Soft. Bowel sounds positive. No organomegaly. EXTREMITIES: No edema. No cyanosis. NEUROLOGICAL: The patient is awake and alert. Following simple commands. MEDICATIONS: Abilify, Glucophage, insulin, Januvia, Klonopin, NicoDerm, Percocet, fluoxetine. LABORATORY DATA: White blood cells 6, hemoglobin 12.3, hematocrit 35.6, platelets 258. Sodium 135, potassium 4, BUN 12, creatinine 0.6, glucose 212. ASSESSMENT AND PLAN: Mr. Henrry Martinez, 47-year-old male with anemia; hypochloremia; diabetes mellitus, uncontrolled; glucosuria; opiates positive in the toxicology; human immunodeficiency virus nonreactive; RPR nonreactive. Seen by Dr. Arceo, Infectious Disease specialist. Has history of left hallux osteomyelitis, status post amputation 8 days ago; hypertension; dyslipidemia; anxiety; depression; bipolar. Waiting for bone pathology report and currently off the antibiotics. Afebrile and has no evidence of infection on examination. The patient's human immunodeficiency virus is negative. Podiatry is on the case. Infectious Disease is on the case. We will continue present treatment. Repeat labs. We will follow up. Li Siddiqi MD
[2018-02-11] MEDS: Oxycodone/Acetaminophen 5/325 mg Tab PO PRN ×2 (00:40→06:23)
[2018-02-11] MEDS: Insulin Reg-LOW-Coverage SC SCH ×3 (08:16→17:41)
--- NOTE | 2018-02-11 10:50 | CP.PCM.PN ---
<LuisitoMoisésedisonanna - Last Filed: 02/11/18 10:49> Subjective - Date & Time of Evaluation Date of Evaluation: 02/11/18 Time of Evaluation: 10:49 - Subjective Subjective: Podiatry progress note: Dr. Coker 47 year old male patient was seen and evaluated at bedside 10 days s/p partial hallux amputation on the left and right plantar wound. Patient is AAOx3 and denies of any acute overnight events. No acute pain to bilateral LE. Denies of recent F/N/V/C/SOB/CP/headache. Denies of any other pedal complains at this time. Objective - Vital Signs/Intake and Output Vital Signs (last 24 hours): Temp Pulse Resp BP Pulse Ox 98.7 F 77 20 116/84 97 02/10/18 21:36 02/10/18 21:36 02/10/18 21:36 02/10/18 21:36 02/10/18 21:36 Intake and Output: 02/11/18 02/11/18 06:59 18:59 Intake Total 540 Balance 540 - Medications Medications: Current Medications Aripiprazole (Abilify) 5 mg PO HS [facility] Last Admin: 02/10/18 21:37 Dose: 5 mg Clonazepam (Klonopin) 0.25 mg PO TID PRN; Protocol PRN Reason: Anxiety Last Admin: 02/10/18 21:36 Dose: 0.25 mg Fluoxetine HCl (Prozac) 20 mg PO DAILY [facility] Last Admin: 02/11/18 08:39 Dose: 20 mg Insulin Human Regular (Humulin R Low) 0 units SC ACHS [facility] PRN Reason: Protocol Last Admin: 02/11/18 08:16 Dose: 3 units Metformin HCl (Glucophage) 1,000 mg PO BID [facility] Last Admin: 02/11/18 10:27 Dose: 1,000 mg Nicotine (Nicoderm Cq) 1 patch TD DAILY [facility] Last Admin: 02/11/18 10:27 Dose: 1 patch Sitagliptin Phosphate (Januvia) 100 mg PO DAILY [facility] Last Admin: 02/11/18 10:27 Dose: 100 mg - Labs Labs: 02/10/18 06:30 02/10/18 06:30 - Constitutional Appears: Well, Non-toxic, No Acute Distress - Extremities Exam Additional comments: VASC: DP/PT pulses are palpable 1/4, Cap refill time: < 3 sec to all digits, Temp gradient: warm to cool from proximal to distal, no pitting or non-pitting edema noted DERM: Surgical site is intact with sutures with no dehiscence, no active drainage, no malodor, no erythema no clinical suspicion of active infection; wound measuring approx 1.5 cm x 1.0 cm on the plantar lateral aspect of the right foot sub metatarsal head 4, wound base is mainly grannular, no active drainage, no malodor, no probe to bone, no clinical suspicion of active infection NEURO: Protective sensation is mildly diminished ORTHO: mild pain on palpation of the plantar wound - Neurological Exam Neurological Exam: Alert, Awake, Oriented x3 - Psychiatric Exam Psychiatric exam: Normal Affect, Normal Mood Assessment and Plan - Assessment and Plan (Free Text) Assessment: 47 year old male was evaluated 1). 10 days s/p partial left hallux amp 2). non- infected plantar right foot wound (Monet 1) Plan: Patient seen and evaluated with attending Dr. Coker Labs, vitals and charts reviewed - afebrile, no leukocytosis ID on board - hx of MRSA Surgical site is fully intact with no active drainage Sites cleaned with saline and dressing applied using betadine, DSD Patient to WBAT in surgical shoe Stable from podiatry standpoint Will continue to follow patient while in-house <Lukas Coker - Last Filed: 02/12/18 09:47> Objective - Vital Signs/Intake and Output Vital Signs (last 24 hours): Temp Pulse Resp BP Pulse Ox 98 F 101 H 20 98/72 L 98 02/12/18 08:00 02/12/18 08:00 02/12/18 08:00 02/12/18 08:00 02/12/18 08:00 Intake and Output: 02/12/18 02/12/18 06:59 18:59 Intake Total 360 320 Balance 360 320 - Medications Medications: Current Medications Aripiprazole (Abilify) 7 mg PO HS [facility] Last Admin: 02/11/18 21:52 Dose: 7 mg Clonazepam (Klonopin) 0.25 mg PO TID PRN; Protocol PRN Reason: Anxiety Last Admin: 02/12/18 09:16 Dose: 0.25 mg Fluoxetine HCl (Prozac) 20 mg PO DAILY [facility] Last Admin: 02/12/18 09:15 Dose: 20 mg Haloperidol (Haldol) 5 mg PO Q6 PRN; Protocol PRN Reason: Hallucinations Last Admin: 02/12/18 07:55 Dose: 5 mg Insulin Human Regular (Humulin R Low) 0 units SC ACHS [facility] PRN Reason: Protocol Last Admin: 02/12/18 07:55 Dose: 3 units Metformin HCl (Glucophage) 1,000 mg PO BID [facility] Last Admin: 02/12/18 09:15 Dose: 1,000 mg Nicotine (Nicoderm Cq) 1 patch TD DAILY [facility] Last Admin: 02/12/18 09:15 Dose: 1 patch Oxycodone/Acetaminophen (Percocet 5/325 Mg Tab) 2 tab PO Q6H PRN PRN Reason: Pain, severe (8-10) Stop: 02/14/18 21:05 Last Admin: 02/12/18 06:40 Dose: 2 tab Sitagliptin Phosphate (Januvia) 100 mg PO DAILY [facility] Last Admin: 02/12/18 09:15 Dose: 100 mg - Labs Labs: 02/10/18 06:30 02/10/18 06:30 Attending/Attestation - Attestation I have personally seen and examined this patient.: Yes I have fully participated in the care of the patient.: Yes I have reviewed all pertinent clinical information, including history, physical exam and plan: Yes
--- NOTE | 2018-02-11 13:19 | PN ---
Copied To: Darrin Arceo MD Attending MD: Darrin Arceo MD DATE: 02/11/2018 SUBJECTIVE: The patient is in bed, in no acute distress, nontoxic. PHYSICAL EXAMINATION: VITAL SIGNS: On exam, temperature is 98, blood pressure is 116/80, respiratory rate of 20. HEENT: Examination of HEENT is unremarkable. NECK: Supple. LUNGS: Have decreased breath sounds. HEART: Normal S1, S2. ABDOMEN: Soft, nontender. LABORATORY DATA: Laboratory examination reveals a white count of 6, hemoglobin of 12 and platelets of 258. BUN of 12, creatinine of 0.6, C reactive protein is 13.3. Urinalysis is noted and HIV is nonreactive. RPR is negative. Microbiology is not available. Currently, off of antibiotics. Dr. Siddiqi's note is reviewed from yesterday. ASSESSMENT AND PLAN: A 47-year-old male, seen earlier today in 578, bed 2, history of left hallux osteomyelitis, status post amputation 9 days ago in a patient with diabetic, hypertensive, dyslipidemia, anxiety, depression, bipolar. Currently, off of antibiotic. Wound looks clean with no evidence of infection. Should have a pathology report from the amputation and review the pathology review of the bone extension and involvement. Currently, off of antibiotics, afebrile with a clean wound. We will follow closely with you. Darrin Arceo MD
[2018-02-11] MEDS ORDERED: Oxycodone/Acetaminophen 5/325 mg Tab PO STA (20:25)
[2018-02-12] MEDS: Insulin Reg-LOW-Coverage SC SCH ×4 (04:10→16:48)
[2018-02-12] MEDS: Oxycodone/Acetaminophen 5/325 mg Tab PO PRN ×2 (06:40→22:14)
--- NOTE | 2018-02-12 09:01 | PN ---
Copied To: Li Siddiqi MD Attending MD: Li Siddiqi MD DATE: 02/11/2018 SUBJECTIVE: The patient is seen and examined on the bedside, looking comfortable. No fever. No chills. No nausea, vomiting, diarrhea. No hematuria or hematochezia. No swelling of the legs. No chest pain. No headache. No dizziness. No nausea, vomiting, diarrhea. Still having pain in the foot. PHYSICAL EXAMINATION: VITAL SIGNS: Temperature 98, blood pressure 107/70, respiratory rate 18, pulse 84. HEENT: Head normocephalic, atraumatic. Eyes PERRLA. Extraocular muscles intact. Conjunctivae clear. Nose patent. Mucous membrane moist. NECK: Supple. No carotid bruit. No JVD or thyromegaly. CHEST: Bilaterally symmetrical. HEART: S1 and S2 positive. LUNGS: Clear to auscultation. ABDOMEN: Bowel sounds positive. No organomegaly. EXTREMITIES: No edema. No cyanosis. Left foot has dressing. NEUROLOGICAL: Awake and alert. Moving all 4 extremities. No focal deficits. MEDICATIONS: Reviewed by me. Abilify, Glucophage, insulin, Januvia, Klonopin, NicoDerm patch, . LABORATORY DATA: White blood cell is 6, hemoglobin 12.3, hematocrit 35.6, platelets 258. Sodium 135, potassium 4, BUN 12, creatinine 0.6, glucose 212. ASSESSMENT AND PLAN: Mr. Henrry Martinez, 47-year-old male with anemia; hypochloremia; diabetes mellitus, uncontrolled; opiates dependency. Human immunodeficiency virus nonreactive. RPR nonreactive. ID is on the case. Has left hallux osteomyelitis, status post amputation 8 days ago; hypertension; dyslipidemia; anxiety; depression; bipolar. Waiting for the bone pathology report and currently off the antibiotics. The patient was admitted actually for depression. Psych is on the case. The patient is afebrile. Has no evidence of infection on examination. Podiatry is on the case. No antibiotics as per Infectious Disease. GI, DVT prophylaxis. Pain management and local wound care. We will follow up. Li Siddiqi MD
--- NOTE | 2018-02-12 10:08 | CP.PCM.PN ---
<Moisés Jorgeedisonanna - Last Filed: 02/12/18 10:05> Subjective - Date & Time of Evaluation Date of Evaluation: 02/12/18 Time of Evaluation: 10:06 - Subjective Subjective: Podiatry progress note: Dr. Coker 47 year old male patient was seen and evaluated at bedside 11 days s/p partial hallux amputation on the left and right plantar wound. Patient is AAOx3 and denies of any acute overnight events. No acute pain to bilateral LE. Denies of recent F/N/V/C/SOB/CP/headache. Denies of any other pedal complains at this time. Objective - Vital Signs/Intake and Output Vital Signs (last 24 hours): Temp Pulse Resp BP Pulse Ox 98 F 101 H 20 98/72 L 98 02/12/18 08:00 02/12/18 08:00 02/12/18 08:00 02/12/18 08:00 02/12/18 08:00 Intake and Output: 02/12/18 02/12/18 06:59 18:59 Intake Total 360 320 Balance 360 320 - Medications Medications: Current Medications Aripiprazole (Abilify) 7 mg PO HS [facility] Last Admin: 02/11/18 21:52 Dose: 7 mg Clonazepam (Klonopin) 0.25 mg PO TID PRN; Protocol PRN Reason: Anxiety Last Admin: 02/12/18 09:16 Dose: 0.25 mg Fluoxetine HCl (Prozac) 20 mg PO DAILY [facility] Last Admin: 02/12/18 09:15 Dose: 20 mg Haloperidol (Haldol) 5 mg PO Q6 PRN; Protocol PRN Reason: Hallucinations Last Admin: 02/12/18 07:55 Dose: 5 mg Insulin Human Regular (Humulin R Low) 0 units SC ACHS [facility] PRN Reason: Protocol Last Admin: 02/12/18 07:55 Dose: 3 units Metformin HCl (Glucophage) 1,000 mg PO BID [facility] Last Admin: 02/12/18 09:15 Dose: 1,000 mg Nicotine (Nicoderm Cq) 1 patch TD DAILY [facility] Last Admin: 02/12/18 09:15 Dose: 1 patch Oxycodone/Acetaminophen (Percocet 5/325 Mg Tab) 2 tab PO Q6H PRN PRN Reason: Pain, severe (8-10) Stop: 02/14/18 21:05 Last Admin: 02/12/18 06:40 Dose: 2 tab Sitagliptin Phosphate (Januvia) 100 mg PO DAILY [facility] Last Admin: 02/12/18 09:15 Dose: 100 mg - Labs Labs: 02/10/18 06:30 02/10/18 06:30 - Constitutional Appears: Well, Non-toxic, No Acute Distress - Extremities Exam Additional comments: VASC: DP/PT pulses are palpable 1/4, Cap refill time: < 3 sec to all digits, Temp gradient: warm to cool from proximal to distal, no pitting or non-pitting edema noted DERM: Surgical site is intact with sutures with no dehiscence, no active drainage, no malodor, no erythema no clinical suspicion of active infection; wound measuring approx 1.5 cm x 1.0 cm on the plantar lateral aspect of the right foot sub metatarsal head 4, wound base is mainly grannular, no active drainage, no malodor, no probe to bone, no clinical suspicion of active infection NEURO: Protective sensation is mildly diminished ORTHO: mild pain on palpation of the plantar wound - Neurological Exam Neurological Exam: Alert, Awake, Oriented x3 - Psychiatric Exam Psychiatric exam: Normal Affect, Normal Mood Assessment and Plan - Assessment and Plan (Free Text) Assessment: 47 year old male was evaluated 1). 11 days s/p partial left hallux amp 2). non- infected plantar right foot wound (Monet 1) Plan: Patient seen and evaluated Discussed with attending Dr. Coker Labs, vitals and charts reviewed - afebrile, no leukocytosis ID on board - hx of MRSA Surgical site is fully intact with no active drainage Sites cleaned with saline and dressing applied using betadine, DSD Patient to WBAT in surgical shoe Stable from podiatry standpoint Will continue to follow patient while in-house <Lukas Coker - Last Filed: 02/12/18 17:19> Objective - Vital Signs/Intake and Output Vital Signs (last 24 hours): Temp Pulse Resp BP Pulse Ox 98 F 101 H 20 98/72 L 98 02/12/18 08:00 02/12/18 08:00 02/12/18 08:00 02/12/18 08:00 02/12/18 08:00 Intake and Output: 02/12/18 02/12/18 06:59 18:59 Intake Total 360 720 Balance 360 720 - Medications Medications: Current Medications Aripiprazole (Abilify) 5 mg PO AMHS [facility] Clonazepam (Klonopin) 0.25 mg PO TID PRN; Protocol PRN Reason: Anxiety Last Admin: 02/12/18 09:16 Dose: 0.25 mg Fluoxetine HCl (Prozac) 30 mg PO DAILY [facility] Haloperidol (Haldol) 5 mg PO Q6 PRN; Protocol PRN Reason: Hallucinations Last Admin: 02/12/18 07:55 Dose: 5 mg Insulin Human Regular (Humulin R Low) 0 units SC ACHS [facility] PRN Reason: Protocol Last Admin: 02/12/18 16:48 Dose: 2 units Metformin HCl (Glucophage) 1,000 mg PO BID [facility] Last Admin: 02/12/18 09:15 Dose: 1,000 mg Nicotine (Nicoderm Cq) 1 patch TD DAILY [facility] Last Admin: 02/12/18 09:15 Dose: 1 patch Oxycodone/Acetaminophen (Percocet 5/325 Mg Tab) 2 tab PO Q6H PRN PRN Reason: Pain, severe (8-10) Stop: 02/14/18 21:05 Last Admin: 02/12/18 06:40 Dose: 2 tab Sitagliptin Phosphate (Januvia) 100 mg PO DAILY [facility] Last Admin: 02/12/18 09:15 Dose: 100 mg - Labs Labs: 02/10/18 06:30 02/10/18 06:30 Attending/Attestation - Attestation I have personally seen and examined this patient.: Yes I have fully participated in the care of the patient.: Yes I have reviewed all pertinent clinical information, including history, physical exam and plan: Yes
--- NOTE | 2018-02-12 16:27 | PN ---
Copied To: Ute Javier MD Attending MD: Ute Javier MD DATE: 02/12/2018 FOLLOWUP NOTE SUBJECTIVE: Shortly, the patient is a 47-year-old male. The patient presented to the emergency room for evaluation of depression and suicidal ideation. The patient is admitted to the medical site for left hallux osteomyelitis. Psych was involved because the patient has history of depression as well as hallucinations. This sheet writer evaluated the patient. Discussed with Dr. Lo. Dr. Lo signed off on this patient 2 days ago, but medical team asked for reconsult because the patient complained of visual hallucinations. The patient was seen and examined today. The patient presented to be alert and oriented. Thought process coherent and goal directed. The patient reports that he feels very depressed, hopeless and helpless. The patient reports that he sees himself of killing himself. Visual hallucinations last time was about a day ago. The patient asked his Prozac to be increased because he feels that Prozac is helping him. The patient reports that he wants to sign into the Psychiatric Inpatient Unit because he does not feel ready to be discharged back home. The patient reported that he is not homeless. He has stable home. The patient reports that he does not use any drugs. His goals are to start feeling better. Vital signs reviewed. Temperature 98, pulse is 101, blood pressure 98/72, respirations 20, oxygen saturation is 98. Medications reviewed. The patient is on Klonopin 0.25 mg three times a day for anxiety. Abilify will be switched to 5 mg twice a day. Prozac will be increased to 30 mg. The patient is on Haldol 5 mg every 6 hours p.r.n. The patient is on Humulin, metformin, Nicoderm, oxycodone, Januvia. Labs reviewed. Hematology reviewed. Hemoglobin and hematocrit 12.3 and 35.6. Chemistry reviewed. Urinalysis reviewed. Toxicology, opioids were positive. Serology nonreactive. MENTAL STATUS EXAMINATION: The patient presented with acceptable personal hygiene, fair eye contact. Mood described as hopeless and depressed. Affect was constricted. Thought process coherent and goal directed. The patient reports that he is seeing himself of killing himself. Visual hallucinations last time was yesterday. Insight and judgment seems to be fair. Impulses are well controlled. IMPRESSION: Rule out major depressive disorder with psychosis, rule out delirium. PLAN: As this sheet writer described above, adjustment of the medications. The patient is on contact isolation. The patient is seen by personal service representative as well as Infectious Disease. We will see the patient on daily basis in order to clarify if the patient meets criteria to go to the Psychiatric Inpatient Unit. Meanwhile, continue current management and therapy. Should you have any questions, give me a call back. Thank you very much for letting me participate in the care of your patient. Ute Javier MD
[2018-02-13] MEDS: Insulin Reg-LOW-Coverage SC SCH ×3 (04:42→16:38)
[2018-02-13] MEDS: Oxycodone/Acetaminophen 5/325 mg Tab PO PRN (11:05)
--- NOTE | 2018-02-13 13:54 | CP.PCM.PN ---
Subjective - Date & Time of Evaluation Date of Evaluation: 02/13/18 Time of Evaluation: 13:53 - Subjective Subjective: Podiatry progress note: Dr. Coker 47 year old male patient was seen and evaluated at bedside 12 days s/p partial hallux amputation on the left and right plantar wound. Patient is AAOx3 and denies of any acute overnight events. No acute pain to bilateral LE. Denies of recent F/N/V/C/SOB/CP/headache. Denies of any other pedal complains at this time. Objective - Vital Signs/Intake and Output Vital Signs (last 24 hours): Temp Pulse Resp BP Pulse Ox 97.8 F 95 H 20 110/83 98 02/13/18 08:14 02/13/18 08:14 02/13/18 08:14 02/13/18 08:14 02/13/18 08:14 Intake and Output: 02/13/18 02/13/18 06:59 18:59 Intake Total 360 Balance 360 - Medications Medications: Current Medications Aripiprazole (Abilify) 5 mg PO AMHS [facility] Last Admin: 02/13/18 11:05 Dose: 5 mg Clonazepam (Klonopin) 0.25 mg PO TID PRN; Protocol PRN Reason: Anxiety Last Admin: 02/13/18 06:01 Dose: 0.25 mg Fluoxetine HCl (Prozac) 30 mg PO DAILY [facility] Last Admin: 02/13/18 11:06 Dose: 30 mg Haloperidol (Haldol) 5 mg PO Q6 PRN; Protocol PRN Reason: Hallucinations Last Admin: 02/13/18 03:15 Dose: 5 mg Insulin Human Regular (Humulin R Low) 0 units SC [facility] PRN Reason: Protocol Last Admin: 02/13/18 04:42 Dose: Not Given Metformin HCl (Glucophage) 1,000 mg PO BID [facility] Last Admin: 02/13/18 11:06 Dose: 1,000 mg Nicotine (Nicoderm Cq) 1 patch TD DAILY [facility] Last Admin: 02/13/18 11:06 Dose: 1 patch Oxycodone/Acetaminophen (Percocet 5/325 Mg Tab) 2 tab PO Q6H PRN PRN Reason: Pain, severe (8-10) Stop: 02/14/18 21:05 Last Admin: 08/21/18 11:05 Dose: 2 tab Sitagliptin Phosphate (Januvia) 100 mg PO DAILY [facility] Last Admin: 02/13/18 11:06 Dose: 100 mg - Labs Labs: 02/10/18 06:30 02/10/18 06:30 - Constitutional Appears: Well, Non-toxic, No Acute Distress - Extremities Exam Additional comments: VASC: DP/PT pulses are palpable 1/4, Cap refill time: < 3 sec to all digits, Temp gradient: warm to cool from proximal to distal, no pitting or non-pitting edema noted DERM: Surgical site is intact with sutures with no dehiscence, no active drainage, no malodor, no erythema no clinical suspicion of active infection; wound measuring approx 1.5 cm x 1.0 cm on the plantar lateral aspect of the right foot sub metatarsal head 4, wound base is mainly grannular, no active drainage, no malodor, no probe to bone, no clinical suspicion of active infection NEURO: Protective sensation is mildly diminished ORTHO: mild pain on palpation of the plantar wound - Neurological Exam Neurological Exam: Alert, Awake, Oriented x3 - Psychiatric Exam Psychiatric exam: Normal Affect, Normal Mood Assessment and Plan - Assessment and Plan (Free Text) Assessment: 47 year old male was evaluated 1). 12 days s/p partial left hallux amp 2). non- infected plantar right foot wound (Monet 1) Plan: Patient seen and evaluated Discussed with attending Dr. Coker Labs, vitals and charts reviewed - afebrile, no leukocytosis ID on board - hx of MRSA Surgical site is fully intact with no active drainage Sites cleaned with saline and dressing applied using betadine, DSD Patient to WBAT in surgical shoe Stable from podiatry standpoint Will continue to follow patient while in-house
--- NOTE | 2018-02-13 14:09 | CP.PCM.PN ---
<Jessica Francis - Last Filed: 02/13/18 14:16> Subjective - Date & Time of Evaluation Date of Evaluation: 02/13/18 Time of Evaluation: 09:00 - Subjective Subjective: PGY-2 infectious disease progress note for Dr. Champagne's service Patient seen and examined at bedside not acute distress. Patient denies abd pain , n/v, chest pain, sob, fever, chills. He is tolerating diet. Objective - Vital Signs/Intake and Output Vital Signs (last 24 hours): Temp Pulse Resp BP Pulse Ox 97.8 F 95 H 20 110/83 98 02/13/18 08:14 02/13/18 08:14 02/13/18 08:14 02/13/18 08:14 02/13/18 08:14 Intake and Output: 02/13/18 02/13/18 06:59 18:59 Intake Total 360 Balance 360 - Medications Medications: Current Medications Aripiprazole (Abilify) 5 mg PO AMHS [facility] Last Admin: 02/13/18 11:05 Dose: 5 mg Clonazepam (Klonopin) 0.25 mg PO TID PRN; Protocol PRN Reason: Anxiety Last Admin: 02/13/18 06:01 Dose: 0.25 mg Fluoxetine HCl (Prozac) 30 mg PO DAILY [facility] Last Admin: 02/13/18 11:06 Dose: 30 mg Haloperidol (Haldol) 5 mg PO Q6 PRN; Protocol PRN Reason: Hallucinations Last Admin: 02/13/18 03:15 Dose: 5 mg Insulin Human Regular (Humulin R Low) 0 units SC [facility] PRN Reason: Protocol Last Admin: 02/13/18 04:42 Dose: Not Given Metformin HCl (Glucophage) 1,000 mg PO BID [facility] Last Admin: 02/13/18 11:06 Dose: 1,000 mg Nicotine (Nicoderm Cq) 1 patch TD DAILY [facility] Last Admin: 02/13/18 11:06 Dose: 1 patch Oxycodone/Acetaminophen (Percocet 5/325 Mg Tab) 2 tab PO Q6H PRN PRN Reason: Pain, severe (8-10) Stop: 02/14/18 21:05 Last Admin: 02/13/18 11:05 Dose: 2 tab Sitagliptin Phosphate (Januvia) 100 mg PO DAILY [facility] Last Admin: 02/13/18 11:06 Dose: 100 mg - Labs Labs: 02/10/18 06:30 02/10/18 06:30 - Constitutional Appears: Well, No Acute Distress - Head Exam Head Exam: ATRAUMATIC, NORMOCEPHALIC - Eye Exam Eye Exam: EOMI, Normal appearance - ENT Exam ENT Exam: Mucous Membranes Moist - Respiratory Exam Respiratory Exam: Clear to Ausculation Bilateral, NORMAL BREATHING PATTERN. absent: Rhonchi, Wheezes, Respiratory Distress - Cardiovascular Exam Cardiovascular Exam: REGULAR RHYTHM. absent: Bradycardia, Tachycardia, Murmur - GI/Abdominal Exam GI & Abdominal Exam: Soft, Normal Bowel Sounds. absent: Distended, Firm, Tenderness - Extremities Exam Additional comments: dressing clean dry and intact - Neurological Exam Neurological Exam: Alert, Awake, Oriented x3 - Skin Skin Exam: Dry, Intact, Normal Color, Warm Assessment and Plan - Assessment and Plan (Free Text) Assessment: 47 yo male with PMH of HTN, diabetes, dyslipidemia, anxity, depression, hallux osteomyelitis s/p amupation 11 day ago. Patient is currently off antibiotics. No signs of infection, wound is clean. Pathology report from amputation is needed to determine involvement. Continue to monitor off antibiotics Case reviewed and discussed with attending <Jewel Champagne - Last Filed: 02/13/18 15:50> Objective - Vital Signs/Intake and Output Vital Signs (last 24 hours): Temp Pulse Resp BP Pulse Ox 97.8 F 95 H 20 110/83 98 02/13/18 08:14 02/13/18 08:14 02/13/18 08:14 02/13/18 08:14 02/13/18 08:14 Intake and Output: 02/13/18 02/13/18 06:59 18:59 Intake Total 360 Balance 360 - Medications Medications: Current Medications Aripiprazole (Abilify) 5 mg PO AMHS [facility] Last Admin: 02/13/18 11:05 Dose: 5 mg Clonazepam (Klonopin) 0.25 mg PO TID PRN; Protocol PRN Reason: Anxiety Last Admin: 02/13/18 15:00 Dose: 0.25 mg Fluoxetine HCl (Prozac) 30 mg PO DAILY [facility] Last Admin: 02/13/18 11:06 Dose: 30 mg Haloperidol (Haldol) 5 mg PO Q6 PRN; Protocol PRN Reason: Hallucinations Last Admin: 02/13/18 03:15 Dose: 5 mg Insulin Human Regular (Humulin R Low) 0 units SC [facility] PRN Reason: Protocol Last Admin: 02/13/18 14:09 Dose: 2 units Metformin HCl (Glucophage) 1,000 mg PO BID [facility] Last Admin: 02/13/18 11:06 Dose: 1,000 mg Nicotine (Nicoderm Cq) 1 patch TD DAILY [facility] Last Admin: 02/13/18 11:06 Dose: 1 patch Oxycodone/Acetaminophen (Percocet 5/325 Mg Tab) 2 tab PO Q6H PRN PRN Reason: Pain, severe (8-10) Stop: 02/14/18 21:05 Last Admin: 02/13/18 11:05 Dose: 2 tab Sitagliptin Phosphate (Januvia) 100 mg PO DAILY [facility] Last Admin: 02/13/18 11:06 Dose: 100 mg - Labs Labs: 02/10/18 06:30 02/10/18 06:30 Assessment and Plan - Assessment and Plan (Free Text) Assessment: Infectious Diseases Attending Physician Addendum Patient seen and examined, discussed with medical records manager. I have reviewed the pertinent clinical information for the patient, including history of present illness, medical, personal and social histories, lab results and imaging findings. I agree with the above findings, assessment and plan. In addition, will continue to monitor the patient off antibiotics for left hallux osteomyelitis with MRSA S/P amputation 12 days ago. Wound is clean. No signs of sepsis. Recommend to retrieve pathology report of the amputated toe to check if the bone margins are clear of inflammation or infection.
[2018-02-13 16:34] VITALS: BP 114/81; PULSE 70; RESP 18; TEMP 97.6; O2SAT 99
--- NOTE | 2018-02-13 18:49 | PN ---
Copied To: Li Siddiqi MD Attending MD: Li Siddiqi MD DATE: 02/13/2018 SUBJECTIVE: The patient is a 47-year-old male. Patient is looking comfortable. No event happened overnight. SP partial hallux amputation on left and right plantar wound. Do not look like in acute distress. No fever. No chills. No nausea, vomiting, shortness of breath, chest pain or headache. No hematuria or hematochezia. PHYSICAL EXAMINATION: VITAL SIGNS: Temperature 97.8, pulse 95, respiratory rate 20, blood pressure 110/83, pulse oximetry 98%. HEENT: Head: Normocephalic, atraumatic. Eyes: PERRLA. Extraocular muscles intact. Conjunctivae clear. Nose patent. Mucous membrane moist. NECK: Supple. No carotid bruit. No JVD or thyromegaly. CHEST: Bilaterally symmetrical. HEART: S1 and S2 positive. LUNGS: Clear to auscultation. ABDOMEN: Soft. Bowel sounds present. No organomegaly. EXTREMITIES: No edema. No cyanosis. NEUROLOGIC: Patient is awake and alert. Follow the simple orders. MEDICATIONS: Abilify, Klonopin, Prozac, Haldol, insulin, Glucophage, Nicoderm, Percocet and Januvia. LABORATORY DATA: White blood cells 6, hemoglobin 12.3, hematocrit 35.6, platelets 258. Sodium 135, potassium 4, BUN 12, creatinine 0.6, glucose 212. ASSESSMENT AND PLAN: Mr. Henrry Martinez is a 47-year-old male with anemia, hypochloremia, hyperglycemia, has 12 days status post partial left hallux amputation, nonhealing plantar right foot wound, Monet 1. Surgery and Podiatry, both teams are on the case, even Infectious Disease is on the case. Psychiatrist saw the patient, still waiting for the record. Meanwhile GI, DVT prophylaxes. Repeat labs. We will follow up. Li Siddiqi MD
--- NOTE | 2018-02-13 20:51 | PN ---
Copied To: Ute Javier MD Attending MD: Ute Javier MD DATE: 02/13/2018 SUBJECTIVE: Shortly, the patient is a 47-year-old male with reported history of anxiety and depression. The patient also has multiple medical issues, recent amputation of his toe, rule out MRSA. The patient was seen by Infectious Disease and was cleared. This typewriter tester also talked to the primary care physician, Dr. Siddiqi, in detail. The patient was medically stable for transfer to the Psychiatric Inpatient Unit, also discussed with the case management as well as Infectious Disease. The patient is off contact isolation. The patient will be seen by medical team on the Psychiatric Inpatient Unit as well as Infectious Disease for further monitoring. In regards of the psychiatric illnesses, the patient still presented to be depressed, hopeless, and helpless. This typewriter tester increased the dose of Abilify yesterday to 10 mg a day. Also, as per patient's request, Prozac was increased yesterday. The patient reported that he feels hopeless and helpless, stressed out about his medical issues. Denied any psychosis for past two days. The patient is willing to sign himself into the Psychiatric Inpatient Unit for further evaluation and stabilization. detention worker signed consent for treatment. The patient has capacity to do so. Vital signs reviewed. Labs reviewed. Medications reviewed. MENTAL STATUS: The patient presented to be depressed, flat affect. Fair eye contact. Speech was monotonic, low volume, underproductive. Mood described as depressed and hopeless. Thought process: Coherent and goal directed. Thought content: The patient denied any hallucinations, but yesterday the patient reported that he had visual hallucination imagining himself to kill himself. Insight and judgment remain to be limited, but seem to be improving. Impulses are well controlled. IMPRESSION: Rule out major depressive disorder with psychosis, rule out schizoaffective disorder, rule out mood disorder due to general medical condition, and rule out delirium. PLAN: The patient will be transferred to the Psychiatric Inpatient Unit for further evaluation and stabilization. We will optimize the Prozac as well as Abilify, mood stabilizer will be concerned. The patient will be seen by medical team as well as Infectious Disease. As per medical team as well as Infectious Disease, the patient does not need to be on contact isolation. The patient is off antibiotics. The patient also will be seen by Podiatry team as well as physical therapy team. We will follow up the patient on the Psychiatric Inpatient Unit. Thank you very much for letting me participate in care of your patient. Should you have any question, give me a call back. Ute Javier MD
--- NOTE | 2018-02-14 08:27 | PN ---
Copied To: Li Siddiqi MD Attending MD: Li Siddiqi MD DATE: 02/12/2018 SUBJECTIVE: The patient is a 47-year-old male. The patient was seen and examined at the bedside, looking comfortable. No acute event happened overnight. The patient is alert and oriented x3. No fever, no chills. No nausea, vomiting or diarrhea. No hematuria or hematochezia. Had bowel movement. No headache. No dizziness. PHYSICAL EXAMINATION: VITAL SIGNS: Temperature 98.4, pulse 101, respiratory rate 20, blood pressure 98/72, pulse oximetry 98. HEENT: Head: Normocephalic, atraumatic. Eyes: PERRLA. Extraocular muscles intact. Conjunctivae clear. Nose: Patent. Mucous membrane moist. NECK: Supple. No carotid bruit. No JVD or thyromegaly. CHEST: Clear to auscultation. ABDOMEN: Soft. Bowel sounds present. No organomegaly. EXTREMITIES: No edema, no cyanosis; except feet has dressing. NEUROLOGIC: Patient is awake, alert, oriented x3. No focal deficit. MEDICATIONS: Abilify, Klonopin, Prozac, Haldol, insulin, Glucophage, Nicoderm, oxycodone, Januvia. LABORATORY DATA: White blood cells 6, hemoglobin 12.3, hematocrit 35.6, platelets 258. Sodium 135, potassium 4, BUN 12, creatinine 0.6, glucose 212. ASSESSMENT AND PLAN: is a 47-year-old male with anemia, hypochloremia, renal insufficiency, hyperglycemia, 10 days status post posterior left hallux amputation, noninfected plantar right foot wound, Monet 1. Infectious Disease and Podiatry is on the case. The patient has a history of depression and anxiety. Psychiatrist, Dr. Ute Javier, is on the case also. Rule out major depressive disorder with psychosis. Rule out delirium. The patient was on contact isolation, but Infectious Disease is on the case. The patient is off the antibiotics. History of hypertension, uncontrolled diabetes mellitus, glucosuria, opiate positive in toxicity, rapid plasma reagin negative, history of foot osteomyelitis - got antibiotics, dyslipidemia, anxiety, history of ethanol abuse, bipolar. GI and DVT prophylaxes. Repeat labs. We will follow up. Li Siddiqi MD [facility] # [id number]
--- NOTE | 2018-02-14 08:31 | DS ---
Copied To: Li Siddiqi MD Attending MD: Li Siddiqi MD CHIEF COMPLAINT: Depression, anxiety, foot pain. HISTORY OF PRESENT ILLNESS: The patient is a 47-year-old male with history of left great toe amputation 6 days ago, on the day of admission came complaining of depression with suicidal ideation. The patient states that he is depressed because he just had his toe amputated. The patient states that he has history of depression in the past. The patient has been aggressive and complaining of depression. Denies chest pain, shortness of breath. No fever. No chills. No nausea or vomiting. No diarrhea. We admitted the patient, called Podiatry consult and ID consult. Because of the patient's depression, we called consult with Psychiatry. Actually, plan was to admit the patient to the Psych, but because of recent amputation, rule out osteomyelitis. The patient had a PICC line. Psych was not able to take the patient. I admitted her under my service, provided services, tried to get old record from the hospital where amputation was done. Now, finally Podiatry and ID cleared the patient. The patient is accepted by Dr. Ute Javier. Discussion by Dr. Ute Javier, signed the patient to [facility] for further treatment. PAST MEDICAL HISTORY: Hypertension, diabetes mellitus, anxiety, bipolar disorder, depression. ALLERGIES: THE PATIENT IS ALLERGIC WITH ALMOND, APPLE, NUT, WALNUT. HOME MEDICATIONS: Reviewed by me. REVIEW OF SYSTEMS: The patient was seen and examined on the bedside, looking comfortable. For more details, see my progress notes dictated on 02/13/2018 at 14:11. Discussion done with Dr. Ute Javier, Psych. Infectious Disease and Podiatry cleared the patient, so we will send the patient back to [facility] for further treatment. Li Siddiqi MD
== END 2018-02-13 20:19 | DRG 885 ==
LOC: ED 16:02 → ERH 18:55 → 5RSO 23:27
PROVIDERS: ADMIT Internal Medicine; ATTEND Internal Medicine
DX: F32.3 Major depressive disorder, single episode, severe with psychotic features (principal); F11.20 Opioid dependence, uncomplicated; R45.851 Suicidal ideations; F41.0 Panic disorder [episodic paroxysmal anxiety]; I10 Essential (primary) hypertension; E11.65 Type 2 diabetes mellitus with hyperglycemia; F10.10 Alcohol abuse, uncomplicated; D64.9 Anemia, unspecified; E78.5 Hyperlipidemia, unspecified; N28.9 Disorder of kidney and ureter, unspecified; E87.8 Other disorders of electrolyte and fluid balance, not elsewhere classified; E78.00 Pure hypercholesterolemia, unspecified; F17.210 Nicotine dependence, cigarettes, uncomplicated; Z78.9 Other specified health status; Z79.899 Other long term (current) drug therapy; Z86.14 Personal history of Methicillin resistant Staphylococcus aureus infection; Z89.412 Acquired absence of left great toe; Z91.14 Patient's other noncompliance with medication regimen; Z91.5 Personal history of self-harm

== ENCOUNTER 2018-02-13 20:21 | Inpatient (IN) | payer MEDICARE, OTHER ==
[2018-02-13 20:28] VITALS: BMI 28.7
[2018-02-13 20:30] VITALS: O2SAT 99
[2018-02-13] MEDS: Insulin Reg-LOW-Coverage SC SCH (21:29)
[2018-02-13] MEDS: Oxycodone/Acetaminophen 5/325 mg Tab PO PRN (21:30)
--- NOTE | 2018-02-14 01:15 | PCM.BM ---
Treatment Plan Problems - Problems identified on initial assessmt Auditory Hallucinations Date Initiated: 02/13/18 Time Initiated: 20:00 Assessment reference: NA Status: Active Priority: 1 Anxiety Date Initiated: 02/13/18 Time Initiated: 20:00 Assessment reference: NA Status: Active Priority: 2 Feelings of Worthlessness Date Initiated: 02/13/18 Time Initiated: 20:00 Assessment reference: NA Status: Active Priority: 3 Ineffective Coping Date Initiated: 02/13/18 Time Initiated: 20:00 Assessment reference: NA Status: Active Priority: 4 Social Isolation Date Initiated: 02/13/18 Time Initiated: 20:00 Assessment reference: NA Status: Active Priority: 5 Treatment assets and liabiliti Patient Assests: cooperative, insightful, ADL independent, negotiates basic needs, good interpersonal skills Patient Liabilities: physical pain, financial problems, medical problems - Milieu Protocol Maintain good personal hygiene: daily Encourage regular showers, every shift Remind patient to perform daily oral care, every shift Assist patient to perform ADL's Maintain personal safety: every shift Educate patient to report safety concerns to staff, every shift Monitor environment for contraband/sharps Medication safety: Monitor for expected outcome, potential side effects: every shift, Assess barriers to learning: every shift, Assess readiness for medication education: every shift Family Contact Family involvement: Family/SO is involved Family contact: Patient agrees to contact - Goals for Treatment Patient goals for treatment: "Stop worrying about life. And enjoy more quality time." Discharge/Continuing Care - Education Needs Education Needs: Patient Medication, Patient Diagnosis/Disease Process, Patient Coping Skills, Patient Anger Management skills, Patient Placement options, Patient Community resources, Patient Activities of Daily Living, Patient Pain, Patient Nutrition, Patient Uses of Medical Equipment, Patient Health Practices/ Safety, Patient Personal Hygiene/Grooming, Patient Aftercare Safety Plan - Discharge Discharge Criteria: Tolerates medication w/o severe side effects
[2018-02-14 07:49] LABS: GLUCOSE,FASTING 167 mg/dL (65-110); HDL CHOLESTEROL 23 mg/dL (29-60)
[2018-02-14 07:59] LABS: LDL CHOLESTEROL 88 mg/dL (0-129)
[2018-02-14] MEDS: Insulin Reg-LOW-Coverage SC SCH ×4 (08:30→21:39)
--- NOTE | 2018-02-14 10:47 | CP.PCM.PN ---
<Moisés Jorgeedisonanna - Last Filed: 02/14/18 10:44> Subjective - Date & Time of Evaluation Date of Evaluation: 02/14/18 Time of Evaluation: 10:44 - Subjective Subjective: Podiatry progress note: Dr. Coker 47 year old male patient was seen and evaluated at bedside 13 days s/p partial hallux amputation on the left and right plantar wound. Patient is AAOx3 and denies of any acute overnight events. No acute pain to bilateral LE. Reports that he has been walking around more than usual since he was transferred to psych floor. Denies of recent F/N/V/C/SOB/CP/headache. Denies of any other pedal complains at this time. Objective - Vital Signs/Intake and Output Vital Signs (last 24 hours): Temp Pulse Resp BP Pulse Ox 97.4 F L 75 16 98/73 L 99 02/14/18 07:00 02/14/18 07:00 02/14/18 07:00 02/14/18 07:00 02/13/18 20:29 - Medications Medications: Current Medications Aripiprazole (Abilify) 5 mg PO AMHS [facility] Last Admin: 02/14/18 09:52 Dose: 5 mg Clonazepam (Klonopin) 0.25 mg PO TID PRN; Protocol PRN Reason: Anxiety Last Admin: 02/14/18 03:56 Dose: 0.25 mg Fluoxetine HCl (Prozac) 30 mg PO DAILY [facility] Last Admin: 02/14/18 09:51 Dose: 30 mg Gabapentin (Neurontin) 100 mg PO TID [facility] Haloperidol (Haldol) 5 mg PO Q6H PRN; Protocol PRN Reason: Agitation Last Admin: 02/13/18 21:38 Dose: 5 mg Insulin Human Regular (Humulin R Low) 0 units SC [facility] PRN Reason: Protocol Last Admin: 02/14/18 08:30 Dose: 1 unit Metformin HCl (Glucophage) 1,000 mg PO BID [facility] Last Admin: 02/14/18 09:52 Dose: 1,000 mg Nicotine (Nicoderm Cq) 1 patch TD DAILY [facility] Last Admin: 02/14/18 09:51 Dose: 1 patch Oxycodone/Acetaminophen (Percocet 5/325 Mg Tab) 2 tab PO Q6H PRN PRN Reason: Pain, severe (8-10) Stop: 02/16/18 20:36 Last Admin: 02/13/18 21:30 Dose: 2 tab Sitagliptin Phosphate (Januvia) 100 mg PO DAILY [facility] Last Admin: 02/14/18 09:51 Dose: 100 mg - Constitutional Appears: Well, Non-toxic, No Acute Distress - Extremities Exam Additional comments: VASC: DP/PT pulses are palpable 1/4, Cap refill time: < 3 sec to all digits, Temp gradient: warm to cool from proximal to distal, no pitting or non-pitting edema noted DERM: Surgical site is intact with sutures with no dehiscence, no active drainage, no malodor, no erythema no clinical suspicion of active infection; wound measuring approx 1.5 cm x 1.0 cm on the plantar lateral aspect of the right foot sub metatarsal head 4, wound base is mainly grannular, no active drainage, no malodor, no probe to bone, no clinical suspicion of active infection NEURO: Protective sensation is mildly diminished ORTHO: mild pain on palpation of the plantar wound - Neurological Exam Neurological Exam: Alert, Awake, Oriented x3 - Psychiatric Exam Psychiatric exam: Normal Affect, Normal Mood Assessment and Plan - Assessment and Plan (Free Text) Assessment: 47 year old male was evaluated 1). 13 days s/p partial left hallux amp 2). non- infected plantar right foot wound (Monet 1) Plan: Patient seen and evaluated Discussed with attending Dr. Coker Labs, vitals and charts reviewed - afebrile, no leukocytosis ID on board - hx of MRSA Surgical site is fully intact with no active drainage Sites cleaned with saline and dressing applied using betadine, DSD Educated patient to prevent from unnecessary ambulation until the sutures are present Patient to WBAT in surgical shoe Stable from podiatry standpoint Will continue to follow patient while in-house <Lukas Coker - Last Filed: 02/15/18 09:41> Objective - Vital Signs/Intake and Output Vital Signs (last 24 hours): Temp Pulse Resp BP Pulse Ox 98.1 F 72 20 97/66 L 99 02/15/18 07:24 02/15/18 07:24 02/15/18 07:24 02/15/18 07:24 02/13/18 20:29 - Medications Medications: Current Medications Aripiprazole (Abilify) 5 mg PO AMHS [facility] Last Admin: 02/14/18 21:51 Dose: 5 mg Clonazepam (Klonopin) 0.25 mg PO TID PRN; Protocol PRN Reason: Anxiety Last Admin: 02/14/18 15:39 Dose: 0.25 mg Fluoxetine HCl (Prozac) 30 mg PO DAILY [facility] Last Admin: 02/15/18 08:22 Dose: 30 mg Gabapentin (Neurontin) 100 mg PO TID [facility] Last Admin: 02/15/18 08:23 Dose: 100 mg Haloperidol (Haldol) 5 mg PO Q6H PRN; Protocol PRN Reason: Agitation Last Admin: 02/14/18 21:50 Dose: 5 mg Insulin Human Regular (Humulin R Low) 0 units SC [facility] PRN Reason: Protocol Last Admin: 02/15/18 08:23 Dose: 1 unit Metformin HCl (Glucophage) 1,000 mg PO BID [facility] Last Admin: 02/15/18 08:22 Dose: 1,000 mg Nicotine (Nicoderm Cq) 1 patch TD DAILY [facility] Last Admin: 02/15/18 08:23 Dose: 1 patch Oxycodone/Acetaminophen (Percocet 5/325 Mg Tab) 2 tab PO Q6H PRN PRN Reason: Pain, severe (8-10) Stop: 02/16/18 20:36 Last Admin: 02/15/18 08:33 Dose: 2 tab Sitagliptin Phosphate (Januvia) 100 mg PO DAILY [facility] Last Admin: 02/15/18 08:22 Dose: 100 mg Attending/Attestation - Attestation I have personally seen and examined this patient.: Yes I have fully participated in the care of the patient.: Yes I have reviewed all pertinent clinical information, including history, physical exam and plan: Yes
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
[2018-02-14] MEDS: Oxycodone/Acetaminophen 5/325 mg Tab PO PRN ×2 (17:09→23:22)
[2018-02-15 07:25] VITALS: RESP 20
[2018-02-15] MEDS: Insulin Reg-LOW-Coverage SC SCH ×4 (08:23→21:15)
[2018-02-15] MEDS: Oxycodone/Acetaminophen 5/325 mg Tab PO PRN ×2 (08:33→15:52)
--- NOTE | 2018-02-15 10:51 | CP.PCM.PN ---
<Moisés Jorgeedisonanna - Last Filed: 02/15/18 10:42> Subjective - Date & Time of Evaluation Date of Evaluation: 02/15/18 Time of Evaluation: 10:42 - Subjective Subjective: Podiatry progress note: Dr. Coker 47 year old male patient was seen and evaluated at bedside 14 days s/p partial hallux amputation on the left and right plantar wound. Patient is AAOx3 and denies of any acute overnight events. No acute pain to bilateral LE. Denies of recent F/N/V/C/SOB/CP/headache. Denies of any other pedal complains at this time. Objective - Vital Signs/Intake and Output Vital Signs (last 24 hours): Temp Pulse Resp BP Pulse Ox 98.1 F 72 20 97/66 L 99 02/15/18 07:24 02/15/18 07:24 02/15/18 07:24 02/15/18 07:24 02/13/18 20:29 - Medications Medications: Current Medications Aripiprazole (Abilify) 5 mg PO AMHS [facility] Last Admin: 02/14/18 21:51 Dose: 5 mg Clonazepam (Klonopin) 0.25 mg PO TID PRN; Protocol PRN Reason: Anxiety Last Admin: 02/14/18 15:39 Dose: 0.25 mg Fluoxetine HCl (Prozac) 40 mg PO DAILY [facility] Gabapentin (Neurontin) 100 mg PO TID [facility] Last Admin: 02/15/18 08:23 Dose: 100 mg Haloperidol (Haldol) 5 mg PO Q6H PRN; Protocol PRN Reason: Agitation Last Admin: 02/14/18 21:50 Dose: 5 mg Insulin Human Regular (Humulin R Low) 0 units SC [facility] PRN Reason: Protocol Last Admin: 02/15/18 08:23 Dose: 1 unit Metformin HCl (Glucophage) 1,000 mg PO BID [facility] Last Admin: 02/15/18 08:22 Dose: 1,000 mg Nicotine (Nicoderm Cq) 1 patch TD DAILY [facility] Last Admin: 02/15/18 08:23 Dose: 1 patch Oxycodone/Acetaminophen (Percocet 5/325 Mg Tab) 2 tab PO Q6H PRN PRN Reason: Pain, severe (8-10) Stop: 02/16/18 20:36 Last Admin: 02/15/18 08:33 Dose: 2 tab Sitagliptin Phosphate (Januvia) 100 mg PO DAILY TANGELA Last Admin: 02/15/18 08:22 Dose: 100 mg Zaleplon (Sonata) 5 mg PO HS TANGELA - Constitutional Appears: Well, Non-toxic, No Acute Distress - Extremities Exam Additional comments: VASC: DP/PT pulses are palpable 1/4, Cap refill time: < 3 sec to all digits, Temp gradient: warm to cool from proximal to distal, no pitting or non-pitting edema noted DERM: Surgical site is intact with sutures with no dehiscence, no active drainage, no malodor, no erythema no clinical suspicion of active infection; wound measuring approx 1.5 cm x 1.0 cm on the plantar lateral aspect of the right foot sub metatarsal head 4, wound base is mainly grannular, no active drainage, no malodor, no probe to bone, no clinical suspicion of active infection NEURO: Protective sensation is mildly diminished ORTHO: mild pain on palpation of the plantar wound - Neurological Exam Neurological Exam: Alert, Awake, Oriented x3 - Psychiatric Exam Psychiatric exam: Normal Affect, Normal Mood Assessment and Plan - Assessment and Plan (Free Text) Assessment: 47 year old male was evaluated 1). 14 days s/p partial left hallux amp 2). non- infected plantar right foot wound (Monet 1) Plan: Patient seen and evaluated with attending Dr. Coker Labs, vitals and charts reviewed - afebrile, no leukocytosis Naris culture: No MRSA Surgical site is fully intact with no active drainage Right plantar foot wound debrided using sterile # 15 blade Sites cleaned with saline and dressing applied using betadine, DSD Educated patient to prevent from unnecessary ambulation until the sutures are present Patient to WBAT in surgical shoe Stable from podiatry standpoint Will continue to follow patient while in-house <Lukas Coker - Last Filed: 02/16/18 15:31> Objective - Vital Signs/Intake and Output Vital Signs (last 24 hours): Temp Pulse Resp BP Pulse Ox 98.0 F 90 20 96/70 L 99 02/16/18 07:11 02/16/18 07:11 02/16/18 07:11 02/16/18 07:11 02/13/18 20:29 - Medications Medications: Current Medications Aripiprazole (Abilify) 5 mg PO 1600 [facility] Last Admin: 02/15/18 15:52 Dose: 5 mg Aripiprazole (Abilify) 10 mg PO DAILY [facility] Clonazepam (Klonopin) 0.25 mg PO TID PRN; Protocol PRN Reason: Anxiety Last Admin: 02/16/18 10:11 Dose: 0.25 mg Fluoxetine HCl (Prozac) 40 mg PO DAILY [facility] Gabapentin (Neurontin) 300 mg PO TID [facility] Last Admin: 02/16/18 12:37 Dose: 300 mg Haloperidol (Haldol) 5 mg PO Q6H PRN; Protocol PRN Reason: Agitation Last Admin: 02/16/18 05:37 Dose: 5 mg Insulin Human Regular (Humulin R Low) 0 units SC ACHS [facility] PRN Reason: Protocol Last Admin: 02/16/18 12:30 Dose: 1 unit Metformin HCl (Glucophage) 1,000 mg PO BID [facility] Mupirocin (Bactroban Ointment) 0 gm TOP DAILY [facility] Nicotine (Nicoderm Cq) 1 patch TD DAILY [facility] Last Admin: 02/16/18 08:09 Dose: 1 patch Oxycodone/Acetaminophen (Percocet 5/325 Mg Tab) 2 tab PO Q6H PRN PRN Reason: Pain, severe (8-10) Stop: 02/16/18 20:36 Last Admin: 02/16/18 09:12 Dose: 2 tab Sitagliptin Phosphate (Januvia) 100 mg PO DAILY [facility] Last Admin: 02/16/18 08:06 Dose: 100 mg Zaleplon (Sonata) 5 mg PO HS [facility] Last Admin: 02/15/18 22:13 Dose: Not Given Attending/Attestation - Attestation I have personally seen and examined this patient.: Yes I have fully participated in the care of the patient.: Yes I have reviewed all pertinent clinical information, including history, physical exam and plan: Yes
[2018-02-15] MEDS ORDERED: Mupirocin 2% Ointment 15 GM TUBE TOP SCH (11:00)
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
--- NOTE | 2018-02-15 15:48 | PCM.PYCHPN ---
Psychiatric Progress Note - Psychiatric Progress Note Patient seen today, length of contact: 30 minutes Patient Chief Complaint: "I was not able to sleep well" Problems Identified/Issues Discussed: Suicide/ homicide prevention, past psychiatric h/o, current psychiatric symptoms , medical problems, risk/benefits and alternatives of medications, medications compliance, coping strategies, substance abuse h/o, relapse prevention, importance of follow up with psychiatrist and therapist, discharge plan. Medical Problems: see HPI and medical team notes for more detailed information Diagnostic Results: Lab Results 02/15/18 11:28: POC Glucose (mg/dL) 240 H 02/15/18 07:26: POC Glucose (mg/dL) 175 H 02/14/18 21:34: POC Glucose (mg/dL) 245 H 02/14/18 16:16: POC Glucose (mg/dL) 191 H 02/14/18 11:29: POC Glucose (mg/dL) 298 H 02/14/18 07:15: POC Glucose (mg/dL) 153 H 02/14/18 07:15: RPR Nonreactive 02/14/18 07:15: TSH 3rd Generation 1.93 02/14/18 07:15: Fasting Glucose 167 H, Triglycerides 161 H, Cholesterol 140, LDL Cholesterol Direct 88, HDL Cholesterol 23 L 02/13/18 20:59: POC Glucose (mg/dL) 175 H Vital Signs Temp Pulse Pulse Resp BP Pulse Ox 02/15/18 07:24 98.1 F 72 20 97/66 L 02/14/18 07:00 97.4 F L 75 16 98/73 L 02/13/18 20:53 98 H 17 02/13/18 20:29 97.7 F 98 H 17 105/76 99 DSM 5 Symptoms Update: shortly patient is 47 year old male, self reported history of "schizophrenia", history of mood spectrum disorder, multiple medical issues including diabetes, patient recently had left toe amputated on January 28, pt was initially brought in for evaluation of depression, psychosis, but required medical admission, pt was seen by and 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 patient was seen and examined today iin his room, patient presented with marginal personal hygiene, has long uncombed hair pulled back into the ponytail , poor dental hygiene, acceptable ADLs. patient complained of insomnia, depression, hopelessness, helplessness, patient reported that he was hearing voices, requested medication to be adjusted. as per staff patient is depressed, but visible in the unit, started to go to groups.. No agitation or aggression. Patient tolerates medications well, no side effects observed or reported, aims 0 , no EPS. Impression: Major depressive disorder with psychosis to be ruled out As per history rule out delusional disorder Rule out schizoaffective disorder Rule out bipolar disorder Rule out mood disorder due to general medical condition Medication Change: Yes (Abilify increased Prozac increased) Medical Record Reviewed: Yes Consults ordered or reviewed: mmedical consult appreciated, ID consult appreciated, podiatry consult appreciated, wound nurse consultation requested Mental Status Examination - Cognitive Function Orientation: Person, Place Memory: Intact Attention: Poor Concentration: Poor Association: WNL Fund of Knowledge: WNL - Mood Mood: Depressed, Anxious - Affect Affect: Flat - Speech Speech: Appropriate - Formal Thought Process Formal Thought Process: Hallucinations, Delusions - Suicidal Ideation Suicidal Ideation: No - Homicidal Ideation Homicidal Ideation: No Goal/Treatment Plan - Goal/Treatment Plan Need for Continued Stay: Remain at risks for inpatient hospitalization, Severe depression anxiety, Discharge may exacerbated symptoms, Severe functional impairment Progress Toward Problem(s) and Goals/Treatment Plan: Milieu/structure/supportive therapy Medical consult appreciated, see medical team note for more detailed info ID consult podiatry consult SW consultation for discharge plan and social issues Med management abilify 15mg po daily for psychosis and mood stabilization Prozac 40 mg with the plan to titrate up to the optimal clinical effect Klonopin 0.25 mg 3 times a day as needed for anxiety gabapentin 100 mg 3 times a day for diabetic neuropathy Sonata 5 mg at the nighttime for insomnia Haloperidol was discontinued Family involvement Follow up on labs Will monitor closely Pt was educated about risk/benefits and alternatives of medications, coping strategies (safety plan, suicide prevention), relapse prevention, importance of follow up with psychiatrist and therapist, stay away from drugs/alcohol/smoking Estimated Date of D/C: 02/22/18
[2018-02-16] MEDS: Oxycodone/Acetaminophen 5/325 mg Tab PO PRN ×3 (01:14→16:03)
[2018-02-16] MEDS: Insulin Reg-LOW-Coverage SC SCH ×4 (08:07→22:08)
--- NOTE | 2018-02-16 08:48 | PN ---
Copied To: Li Siddiqi MD Attending MD: Li Siddiqi MD DATE: 02/15/2018 SUBJECTIVE: The patient was seen and examined on the bedside, looking comfortable. No nausea, vomiting, diarrhea. No hematuria or hematochezia. No swelling of the legs. No chest pain. No palpitation. No headache. No dizziness. PAST MEDICAL HISTORY: As above. Cardiac disorders, hypertension. Pe awake , head nc , at , eyes glen , eomi . nose patent , mmm , cta , s1s2+ . abdomen soft . ext no oedema . lab noted by me , meds noted by me ASSESSMENT AND PLAN: Mr. Martinez, 47-year-old male with past medical history of diabetes mellitus, hypertension, dyslipidemia, anxiety, decreased hallux valgus. Seen by Podiatry for management and pathology of the . Continue monitoring of antibiotics. Off antibiotics. Repeat labs. We will follow up. Li Siddiqi MD MTDD
--- NOTE | 2018-02-16 13:40 | PCM.PYCHPN ---
Psychiatric Progress Note - Psychiatric Progress Note Patient seen today, length of contact: 30 minutes Patient Chief Complaint: "I was not able to sleep well" Problems Identified/Issues Discussed: Suicide/ homicide prevention, past psychiatric h/o, current psychiatric symptoms , medical problems, risk/benefits and alternatives of medications, medications compliance, coping strategies, substance abuse h/o, relapse prevention, importance of follow up with psychiatrist and therapist, discharge plan. Medical Problems: see HPI and medical team notes for more detailed information Diagnostic Results: Lab Results 02/15/18 11:28: POC Glucose (mg/dL) 240 H 02/15/18 07:26: POC Glucose (mg/dL) 175 H 02/14/18 21:34: POC Glucose (mg/dL) 245 H 02/14/18 16:16: POC Glucose (mg/dL) 191 H 02/14/18 11:29: POC Glucose (mg/dL) 298 H 02/14/18 07:15: POC Glucose (mg/dL) 153 H 02/14/18 07:15: RPR Nonreactive 02/14/18 07:15: TSH 3rd Generation 1.93 02/14/18 07:15: Fasting Glucose 167 H, Triglycerides 161 H, Cholesterol 140, LDL Cholesterol Direct 88, HDL Cholesterol 23 L 02/13/18 20:59: POC Glucose (mg/dL) 175 H Vital Signs Temp Pulse Pulse Resp BP Pulse Ox 02/15/18 07:24 98.1 F 72 20 97/66 L 02/14/18 07:00 97.4 F L 75 16 98/73 L 02/13/18 20:53 98 H 17 02/13/18 20:29 97.7 F 98 H 17 105/76 99 DSM 5 Symptoms Update: shortly patient is 47 year old male, self reported history of "schizophrenia", history of mood spectrum disorder, multiple medical issues including diabetes, patient recently had left toe amputated on January 28, pt was initially brought in for evaluation of depression, psychosis, but required medical admission, pt was seen by and 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 patient was seen and examined today in his room, patient presented with womewhat improved personal hygiene, has long uncombed hair pulled back into the ponytail, poor dental hygiene, acceptable ADLs. patient complained of insomnia, but as per record sonata was not given to the pt because pt was sleeping well. pt c/o depression, hopelessness, helplessness, patient reported no voices. as per staff patient is depressed, but visible in the unit, started to go to groups, flat affect, prefers to stay in his room. No agitation or aggression. Patient tolerates medications well, no side effects observed or reported, aims 0 , no EPS. Impression: Major depressive disorder with psychosis to be ruled out As per history rule out delusional disorder Rule out schizoaffective disorder Rule out bipolar disorder Rule out mood disorder due to general medical condition Medication Change: Yes (Abilify increased Prozac increased 02/15/18, neurontin increased) Medical Record Reviewed: Yes Consults ordered or reviewed: mmedical consult appreciated, ID consult appreciated, podiatry consult appreciated, wound nurse consultation requested Mental Status Examination - Cognitive Function Orientation: Person, Place Memory: Intact Attention: Poor Concentration: Poor Association: WNL Fund of Knowledge: WNL - Mood Mood: Depressed, Anxious - Affect Affect: Flat - Speech Speech: Appropriate - Formal Thought Process Formal Thought Process: Hallucinations (denied), Delusions (denied) - Suicidal Ideation Suicidal Ideation: No - Homicidal Ideation Homicidal Ideation: No Goal/Treatment Plan - Goal/Treatment Plan Need for Continued Stay: Remain at risks for inpatient hospitalization, Severe depression anxiety, Discharge may exacerbated symptoms, Severe functional impairment Progress Toward Problem(s) and Goals/Treatment Plan: Milieu/structure/supportive therapy Medical consult appreciated, see medical team note for more detailed info ID consult podiatry consult consultation for discharge plan and social issues Med management abilify 15mg po daily for psychosis and mood stabilization Prozac 40 mg with the plan to titrate up to the optimal clinical effect Klonopin 0.25 mg 3 times a day as needed for anxiety gabapentin 300 mg 3 times a day for diabetic neuropathy Sonata 5 mg at the nighttime for insomnia Haloperidol was discontinued Family involvement Follow up on labs Will monitor closely Pt was educated about risk/benefits and alternatives of medications, coping strategies (safety plan, suicide prevention), relapse prevention, importance of follow up with psychiatrist and therapist, stay away from drugs/alcohol/smoking Estimated Date of D/C: 02/22/18
--- NOTE | 2018-02-16 15:27 | CP.PCM.PN ---
<Moisés Jorgeedisonanna - Last Filed: 02/16/18 15:25> Subjective - Date & Time of Evaluation Date of Evaluation: 02/16/18 Time of Evaluation: 15:25 - Subjective Subjective: Podiatry progress note: Dr. Coker 47 year old male patient was seen and evaluated at bedside 15 days s/p partial hallux amputation on the left and right plantar wound. Patient is AAOx3 and denies of any acute overnight events. No acute pain to bilateral LE. Denies of recent F/N/V/C/SOB/CP/headache. Denies of any other pedal complains at this time. Objective - Vital Signs/Intake and Output Vital Signs (last 24 hours): Temp Pulse Resp BP Pulse Ox 98.0 F 90 20 96/70 L 99 02/16/18 07:11 02/16/18 07:11 02/16/18 07:11 02/16/18 07:11 02/13/18 20:29 - Medications Medications: Current Medications Aripiprazole (Abilify) 5 mg PO 1600 [facility] Last Admin: 02/15/18 15:52 Dose: 5 mg Aripiprazole (Abilify) 10 mg PO DAILY [facility] Clonazepam (Klonopin) 0.25 mg PO TID PRN; Protocol PRN Reason: Anxiety Last Admin: 02/16/18 10:11 Dose: 0.25 mg Fluoxetine HCl (Prozac) 40 mg PO DAILY [facility] Gabapentin (Neurontin) 300 mg PO TID [facility] Last Admin: 02/16/18 12:37 Dose: 300 mg Haloperidol (Haldol) 5 mg PO Q6H PRN; Protocol PRN Reason: Agitation Last Admin: 02/16/18 05:37 Dose: 5 mg Insulin Human Regular (Humulin R Low) 0 units SC ACHS [facility] PRN Reason: Protocol Last Admin: 02/16/18 12:30 Dose: 1 unit Metformin HCl (Glucophage) 1,000 mg PO BID [facility] Mupirocin (Bactroban Ointment) 0 gm TOP DAILY [facility] Nicotine (Nicoderm Cq) 1 patch TD DAILY [facility] Last Admin: 02/16/18 08:09 Dose: 1 patch Oxycodone/Acetaminophen (Percocet 5/325 Mg Tab) 2 tab PO Q6H PRN PRN Reason: Pain, severe (8-10) Stop: 02/16/18 20:36 Last Admin: 02/16/18 09:12 Dose: 2 tab Sitagliptin Phosphate (Januvia) 100 mg PO DAILY [facility] Last Admin: 02/16/18 08:06 Dose: 100 mg Zaleplon (Sonata) 5 mg PO HS [facility] Last Admin: 02/15/18 22:13 Dose: Not Given - Constitutional Appears: Well, Non-toxic, No Acute Distress - Extremities Exam Additional comments: VASC: DP/PT pulses are palpable 1/4, Cap refill time: < 3 sec to all digits, Temp gradient: warm to cool from proximal to distal, no pitting or non-pitting edema noted DERM: Surgical site is intact with sutures with no dehiscence, no active drainage, no malodor, no erythema no clinical suspicion of active infection; wound measuring approx 1.5 cm x 1.0 cm on the plantar lateral aspect of the right foot sub metatarsal head 4, wound base is mainly grannular, no active drainage, no malodor, no probe to bone, no clinical suspicion of active infection NEURO: Protective sensation is mildly diminished ORTHO: mild pain on palpation of the plantar wound - Neurological Exam Neurological Exam: Alert, Awake, Oriented x3 - Psychiatric Exam Psychiatric exam: Normal Affect, Normal Mood Assessment and Plan - Assessment and Plan (Free Text) Assessment: 47 year old male was evaluated 1). 15 days s/p partial left hallux amp 2). non- infected plantar right foot wound (Monet 1) Plan: Patient seen and evaluated Discussed with attending Dr. Coker Labs, vitals and charts reviewed - afebrile, no leukocytosis Naris culture: No MRSA Surgical site is fully intact with no active drainage Sites cleaned with saline and dressing applied using betadine, DSD Educated patient to prevent from unnecessary ambulation until the sutures are present Patient to WBAT in surgical shoe Stable from podiatry standpoint Will continue to follow patient while in-house <Lukas Coker - Last Filed: 02/16/18 15:34> Objective - Vital Signs/Intake and Output Vital Signs (last 24 hours): Temp Pulse Resp BP Pulse Ox 98.0 F 90 20 96/70 L 99 02/16/18 07:11 02/16/18 07:11 02/16/18 07:11 02/16/18 07:11 02/13/18 20:29 - Medications Medications: Current Medications Aripiprazole (Abilify) 5 mg PO 1600 [facility] Last Admin: 02/15/18 15:52 Dose: 5 mg Aripiprazole (Abilify) 10 mg PO DAILY [facility] Clonazepam (Klonopin) 0.25 mg PO TID PRN; Protocol PRN Reason: Anxiety Last Admin: 02/16/18 10:11 Dose: 0.25 mg Fluoxetine HCl (Prozac) 40 mg PO DAILY [facility] Gabapentin (Neurontin) 300 mg PO TID [facility] Last Admin: 02/16/18 12:37 Dose: 300 mg Haloperidol (Haldol) 5 mg PO Q6H PRN; Protocol PRN Reason: Agitation Last Admin: 02/16/18 05:37 Dose: 5 mg Insulin Human Regular (Humulin R Low) 0 units SC ACHS [facility] PRN Reason: Protocol Last Admin: 02/16/18 12:30 Dose: 1 unit Metformin HCl (Glucophage) 1,000 mg PO BID [facility] Mupirocin (Bactroban Ointment) 0 gm TOP DAILY [facility] Nicotine (Nicoderm Cq) 1 patch TD DAILY [facility] Last Admin: 02/16/18 08:09 Dose: 1 patch Oxycodone/Acetaminophen (Percocet 5/325 Mg Tab) 2 tab PO Q6H PRN PRN Reason: Pain, severe (8-10) Stop: 02/16/18 20:36 Last Admin: 02/16/18 09:12 Dose: 2 tab Sitagliptin Phosphate (Januvia) 100 mg PO DAILY [facility] Last Admin: 02/16/18 08:06 Dose: 100 mg Zaleplon (Sonata) 5 mg PO HS [facility] Last Admin: 02/15/18 22:13 Dose: Not Given Attending/Attestation - Attestation I have personally seen and examined this patient.: Yes I have fully participated in the care of the patient.: Yes I have reviewed all pertinent clinical information, including history, physical exam and plan: Yes
[2018-02-16] MEDS: Mupirocin 2% Ointment 15 GM TUBE TOP SCH (16:12)
--- NOTE | 2018-02-17 06:04 | PN ---
Copied To: Li Siddiqi MD Attending MD: Li Siddiqi MD DATE: 02/16/2018 SUBJECTIVE: Patient is seen and examined on the bedside, having dinner. No fever, no chills. No nausea, vomiting or diarrhea. No headache, no dizziness. No chest pain or palpitation. Complaining about a little bit of pain in the feet. PHYSICAL EXAMINATION: VITAL SIGNS: Temperature 98, pulse 90, respiratory rate 20, blood pressure 136/70, pulse oximetry 99%. HEENT: Head normocephalic, atraumatic. Eyes, PERRLA. Extraocular muscles intact. Conjunctivae clear. Nose patent. Mucous membranes moist. NECK: Supple. No carotid bruits. No JVD or thyromegaly. CHEST: Bilaterally symmetrical. HEART: S1, S2 positive. LUNGS: Clear to auscultation. ABDOMEN: Soft, bowel sounds present. No organomegaly. EXTREMITIES: No edema, no cyanosis. NEUROLOGIC: Patient is awake, alert. Moving all 4 extremities. No focal deficits. MEDICATIONS: Abilify, Klonopin, Prozac, Neurontin, Haldol, Glucophage, Nicoderm patch, oxycodone, Januvia, Sonata. LABORATORY DATA: We do not have recent labs today, but I reviewed the old labs. ASSESSMENT AND PLAN: Mr. Henrry Martinez is a 47-year-old male with history of 15 days status post partial left hallux amputation, noninfected plantar right foot wound, no methicillin-resistant staphylococcus aureus nares; history of depression, is under the care of a psychiatrist on the psych floor; diabetes mellitus, is on sliding scale, getting metformin; history of smoking, getting Nicoderm patch; insomnia, getting Sonata. Oriented x3. Reviewed Dr. fair and psychiatrist Dr. Ute Javier's notes also. Infectious Disease is on the case, Dr. Arceo. Gastrointestinal and deep venous thrombosis prophylaxes. Continue Abilify, Prozac, Klonopin, gabapentin, Sonata, Haldol. Family involvement. Repeat labs. We will follow up. Li Siddiqi MD MTDD
[2018-02-17] MEDS: Insulin Reg-LOW-Coverage SC SCH ×4 (08:18→21:59)
[2018-02-17] MEDS: Mupirocin 2% Ointment 15 GM TUBE TOP SCH (09:05)
--- NOTE | 2018-02-17 09:38 | PCM.PYCHPN ---
Psychiatric Progress Note - Psychiatric Progress Note Patient seen today, length of contact: 30 minutes Problems Identified/Issues Discussed: I reviewed notes and met with patient at bedside. He is familiar to me from my multiple visits with him when he was being medically stabilized prior to transfer. He remembers me from these encounters. As usual, he presents as friendly and related. Remains oriented x3. Indicates that Prozac and abilify are helping with mood and hallucinations. Denies any current perceptual disturbance or side effects from his medications. Patient reports continued anxiety as well as restless sleep last night. He requests increase in anxiety medications and sleep aid. Patient has been visible and has gone to groups but he isn't very engaged yet. Polite with staff and there have been no behavioral issues. Diagnostic Results: Major depressive disorder with psychosis to be ruled out As per history rule out delusional disorder Rule out schizoaffective disorder Rule out bipolar disorder Rule out mood disorder due to general medical condition Medication Change: Yes (Increase prozac, sonata and klonopin) Medical Record Reviewed: Yes Mental Status Examination - Cognitive Function Orientation: Person, Place Memory: Intact Attention: Poor Concentration: Poor Association: WNL Fund of Knowledge: WNL - Mood Mood: Depressed, Anxious - Affect Affect: Flat - Speech Speech: Appropriate - Formal Thought Process Formal Thought Process: Hallucinations (denied), Delusions (denied) - Suicidal Ideation Suicidal Ideation: No - Homicidal Ideation Homicidal Ideation: No Goal/Treatment Plan - Goal/Treatment Plan Need for Continued Stay: Remain at risks for inpatient hospitalization, Severe depression anxiety, Discharge may exacerbated symptoms, Severe functional impairment Progress Toward Problem(s) and Goals/Treatment Plan: * c/w current tx and plan * Increased prozac to 50 mg po AM for depression and anxiety * Increased klonopin to 0.25/0.25/0.5 for anxiety * Increased sonata to 10 mg HS prn for insomnia * No new weekend labs thus far * Vitals reviewed and noted below: Selected Entries 02/16/18 02/16/18 07:11 16:00 Temperature 98.0 F Pulse Rate 90 81 Respiratory 20 Rate Blood Pressure 96/70 L 113/79 Estimated Date of D/C: 02/22/18
[2018-02-17] MEDS: Oxycodone/Acetaminophen 5/325 mg Tab PO PRN ×2 (09:51→17:01)
--- NOTE | 2018-02-17 13:13 | CP.PCM.PN ---
<Yvan Nunez - Last Filed: 02/17/18 13:08> Subjective - Date & Time of Evaluation Date of Evaluation: 02/17/18 Time of Evaluation: 13:08 - Subjective Subjective: Podiatry progress note for attending Dr. Coker 47 year old male patient was seen and evaluated at bedside 16 days s/p partial hallux amputation on the left and right plantar wound. Patient is AAOx3 and denies of any acute overnight events. Patient denies any pain to bilateral LE. Patient denies any overnight F/N/V/C/SOB/CP/headache. Patient denies any other pedal complains at this time. Objective - Vital Signs/Intake and Output Vital Signs (last 24 hours): Temp Pulse Resp BP Pulse Ox 98.2 F 111 H 20 107/76 99 02/17/18 07:10 02/17/18 07:10 02/17/18 07:10 02/17/18 07:10 02/13/18 20:29 - Medications Medications: Current Medications Aripiprazole (Abilify) 5 mg PO 1600 [facility] Last Admin: 02/16/18 16:10 Dose: 5 mg Aripiprazole (Abilify) 10 mg PO DAILY [facility] Last Admin: 02/17/18 08:18 Dose: 10 mg Clonazepam (Klonopin) 0.25 mg PO BID PRN; Protocol PRN Reason: Anxiety Clonazepam (Klonopin) 0.5 mg PO HS [facility] PRN Reason: Protocol Fluoxetine HCl (Prozac) 50 mg PO DAILY [facility] Gabapentin (Neurontin) 300 mg PO TID [facility] Last Admin: 02/17/18 12:03 Dose: 300 mg Haloperidol (Haldol) 5 mg PO Q6H PRN; Protocol PRN Reason: Agitation Last Admin: 02/16/18 20:37 Dose: 5 mg Insulin Human Regular (Humulin R Low) 0 units SC ACHS [facility] PRN Reason: Protocol Last Admin: 02/17/18 11:36 Dose: 3 unit Metformin HCl (Glucophage) 1,000 mg PO BID [facility] Last Admin: 02/17/18 08:18 Dose: 1,000 mg Mupirocin (Bactroban Ointment) 1 gm TOP DAILY [facility] Nicotine (Nicoderm Cq) 1 patch TD DAILY [facility] Last Admin: 02/17/18 08:18 Dose: 1 patch Oxycodone/Acetaminophen (Percocet 5/325 Mg Tab) 2 tab PO Q6H PRN PRN Reason: Pain, moderate (4-7) Stop: 02/20/18 09:20 Last Admin: 02/17/18 09:51 Dose: 2 tab Sitagliptin Phosphate (Januvia) 100 mg PO DAILY [facility] Last Admin: 02/17/18 08:18 Dose: 100 mg Zaleplon (Sonata) 10 mg PO HS [facility] - Constitutional Appears: Well, Non-toxic, No Acute Distress - Head Exam Head Exam: ATRAUMATIC, NORMOCEPHALIC - Extremities Exam Additional comments: Vasc: DP/PT pulses are palpable 1/4, Cap refill time: < 3 sec to all digits, Temp gradient: warm to cool from proximal to distal, no pitting or non-pitting edema noted Neuro: Gross sensation intact b/l. Protective sensation mildly diminished b/l. Derm: Surgical site is intact with sutures with no signs dehiscence, no active drainage, no malodor, no erythema no clinical signs of active infection; A wound measuring approximately 1.5 cm x 1.0 cm on the plantar lateral aspect of the right foot sub metatarsal head 4, wound base is grannular, fibrous 80:20, no active drainage, no malodor, no probe to bone, No tracking or tunneling or undermining, no clinical signs of active infection MSK: mild pain on palpation of the plantar wound. Muscle power intact 5/5 in all groups. - Neurological Exam Neurological Exam: Alert, Awake, Oriented x3 - Psychiatric Exam Psychiatric exam: Normal Affect, Normal Mood Assessment and Plan - Assessment and Plan (Free Text) Assessment: 47 year old male was evaluated 16 days s/p partial left hallux amp and for non- infected plantar right foot wound (Monet 1) Plan: Patient seen and evaluated at the bedside with attending Dr. Coker Discussed plan in details with attending Dr. Coker Labs, vitals and charts reviewed - afebrile, no leukocytosis Surgical site is fully intact with no active drainage Sites cleaned with saline and dressing applied using xeroform and DSD, Marcial bandage on the right side and DSD, Marcial bandage on the left side. Ordered bactroban cream for the patient Patient to bear weight as tolerated in surgical shoe Patient is table from podiatry standpoint Podiatry will continue to follow patient while in-house <Lukas Coker - Last Filed: 02/18/18 10:36> Objective - Vital Signs/Intake and Output Vital Signs (last 24 hours): Temp Pulse Resp BP Pulse Ox 97.5 F L 82 20 95/65 L 99 02/18/18 07:30 02/18/18 07:30 02/18/18 07:30 02/18/18 07:30 02/13/18 20:29 - Medications Medications: Current Medications Aripiprazole (Abilify) 5 mg PO 1600 [facility] Last Admin: 02/17/18 17:02 Dose: 5 mg Aripiprazole (Abilify) 10 mg PO DAILY [facility] Last Admin: 02/18/18 08:06 Dose: 10 mg Chlorpromazine (Thorazine) 50 mg PO Q6 PRN; Protocol PRN Reason: Agitation Clonazepam (Klonopin) 0.25 mg PO BID PRN; Protocol PRN Reason: Anxiety Last Admin: 02/18/18 06:51 Dose: 0.25 mg Clonazepam (Klonopin) 0.75 mg PO HS [facility] PRN Reason: Protocol Fluoxetine HCl (Prozac) 50 mg PO DAILY [facility] Last Admin: 02/18/18 08:06 Dose: 50 mg Gabapentin (Neurontin) 300 mg PO TID [facility] Last Admin: 02/18/18 08:05 Dose: 300 mg Insulin Human Regular (Humulin R Low) 0 units SC ACHS [facility] PRN Reason: Protocol Last Admin: 02/18/18 08:06 Dose: 2 unit Metformin HCl (Glucophage) 1,000 mg PO BID [facility] Last Admin: 02/18/18 08:05 Dose: 1,000 mg Mupirocin (Bactroban Ointment) 1 gm TOP DAILY [facility] Last Admin: 02/18/18 08:43 Dose: 1 applic Nicotine (Nicoderm Cq) 1 patch TD DAILY [facility] Last Admin: 02/18/18 08:06 Dose: 1 patch Oxycodone/Acetaminophen (Percocet 5/325 Mg Tab) 2 tab PO Q6H PRN PRN Reason: Pain, moderate (4-7) Stop: 02/20/18 09:20 Last Admin: 02/18/18 08:43 Dose: 2 tab Sitagliptin Phosphate (Januvia) 100 mg PO DAILY [facility] Last Admin: 02/18/18 08:05 Dose: 100 mg Zaleplon (Sonata) 20 mg PO [facility] Attending/Attestation - Attestation I have personally seen and examined this patient.: Yes I have fully participated in the care of the patient.: Yes I have reviewed all pertinent clinical information, including history, physical exam and plan: Yes
--- NOTE | 2018-02-17 14:31 | PN ---
Copied To: Darrin Arceo MD Attending MD: Darrin Arceo MD DATE: 02/17/2018 SUBJECTIVE: The patient is in bed, in no acute distress. PHYSICAL EXAMINATION: VITAL SIGNS: On exam, temperature is 98, blood pressure is 107/70, respiratory rate 16. HEENT: Unremarkable. NECK: Supple. LUNGS: Have decreased breath sounds. HEART: Normal S1, S2. ABDOMEN: Soft, nontender. LABORATORY DATA: Laboratory examination is noted and reviewed. ASSESSMENT AND PLAN: A 47-year-old male who was seen in psychiatric floor this morning with history of diabetes, hypertension, anxiety, schizophrenia, history of methicillin-resistant Staphylococcus aureus, recent great toe amputation and with depression and currently with status post amputation. Currently, off of antibiotics. No evidence of infection. Wound is clean and review of orders confirms the patient to be off of antibiotics. We will follow with you. The patient was seen earlier today in room 513. Darrin Arceo MD
--- NOTE | 2018-02-17 23:18 | PN ---
Copied To: Li Siddiqi MD Attending MD: Li Siddiqi MD DATE: 02/17/2018 SUBJECTIVE: The patient is seen and examined on the bedside. Looking comfortable. 15 days status post partial hallux amputation on the left and right plantar wound. Getting dressing changes from the Podiatry. No fever. No chills. No headache. No dizziness. No chest pain. No palpitation. PHYSICAL EXAMINATION: VITAL SIGNS: Temperature 98.2, pulse 111, respiratory rate 20, blood pressure 107/76, pulse oximetry 99. HEENT: Head normocephalic, atraumatic. Eyes PERRLA. Extraocular muscles intact. Conjunctivae clear. Nose patent. Mucous membrane moist. NECK: Supple. No carotid bruit. No JVD or thyromegaly. CHEST: Bilaterally symmetrical. HEART: S1 and S2 positive. LUNGS: Clear to auscultation. ABDOMEN: Soft. Bowel sounds positive. No organomegaly. EXTREMITIES: No edema. No cyanosis. Both feet has dressing. NEUROLOGICAL: The patient is awake and alert. Moving all 4 extremities. No focal deficits. MEDICATIONS: Abilify, Klonopin, Prozac, Neurontin, Haldol, insulin, Glucophage, Bactroban ointment, Nicoderm, oxycodone, Januvia, Sonata. LABORATORY DATA: Labs reviewed by me. ASSESSMENT AND PLAN: Mr. Henrry Martinez, 47-year-old male, status post 15 days of partial left hallux amputation, noninfected plus right foot wound, Lizeth I. The patient is getting wound care from Podiatry. History of depression, getting treatment from the psychiatrist. Pain in the foot, getting pain management. History of diabetes mellitus, hypertension, anxiety, schizophrenia, methicillin-resistant Staphylococcus aureus. Currently, off the antibiotics. No evidence of infection. Wound is clean. Reviews of order confirmed the patient to be off the antibiotics. GI, DVT prophylaxis. Repeat labs. We will follow up. Li Siddiqi MD
[2018-02-18] MEDS: Oxycodone/Acetaminophen 5/325 mg Tab PO PRN ×3 (01:01→19:11)
[2018-02-18] MEDS: Insulin Reg-LOW-Coverage SC SCH ×4 (08:06→21:03)
[2018-02-18] MEDS: Mupirocin 2% Ointment 15 GM TUBE TOP SCH (08:43)
--- NOTE | 2018-02-18 09:55 | PCM.PYCHPN ---
Psychiatric Progress Note - Psychiatric Progress Note Patient seen today, length of contact: 30 minutes Problems Identified/Issues Discussed: I reviewed notes and met with patient at bedside. He is familiar to me from my multiple visits with him when he was being medically stabilized prior to transfer. He remembers me from these encounters. As usual, he presents as friendly and related. Remains oriented x3. Indicates that Prozac and abilify are helping with mood and hallucinations. Denied any perceptual disturbance or side effects from his medications over the weekend. Patient reports continued anxiety as well as restless sleep. He asked for haldol prn yesterday to help with paranoia. He requests increase in anxiety medications and sleep aid. Patient has been visible and has gone to groups but he isn't very engaged yet. He is generally polite with staff and there have been no behavioral issues. Diagnostic Results: Major depressive disorder with psychosis to be ruled out As per history rule out delusional disorder Rule out schizoaffective disorder Rule out bipolar disorder Rule out mood disorder due to general medical condition Medication Change: Yes (Increase sonata and klonopin, change haldol to thorazine ) Medical Record Reviewed: Yes Mental Status Examination - Cognitive Function Orientation: Person, Place, Situation Memory: Intact Attention: WNL Concentration: Poor Association: WNL Fund of Knowledge: WNL - Mood Mood: Depressed, Anxious - Affect Affect: Flat, Other (a little labile) - Speech Speech: Appropriate - Formal Thought Process Formal Thought Process: Hallucinations (denied), Delusions (reported paranoia on 02/17/18) - Suicidal Ideation Suicidal Ideation: No - Homicidal Ideation Homicidal Ideation: No Goal/Treatment Plan - Goal/Treatment Plan Need for Continued Stay: Remain at risks for inpatient hospitalization, Severe depression anxiety, Discharge may exacerbated symptoms, Severe functional impairment Progress Toward Problem(s) and Goals/Treatment Plan: * c/w current tx and plan * Appreciate f/u by Dr. Nunez/Dr. Coker ~Surgical site is fully intact with no active drainage ~Sites cleaned with saline and dressing applied using xeroform and DSD, Marcial bandage on the right side and DSD, Marcial bandage on the left side. ~Ordered bactroban cream for the patient ~Patient to bear weight as tolerated in surgical shoe ~Patient is stable from podiatry standpoint * Appreciate f/u by Dr. Siddiqi on 02/17/18~repeat labs, will continue to f/u * Appreciate f/u by Dr. Arceo on 02/17/18~will continue to f/u * Increased prozac to 50 mg po AM on 02/17/18 for depression and anxiety * Increased klonopin to 0.25/0.25/0.75 for anxiety on 02/18/18 * Increased sonata to 20 mg HS prn for insomnia on 02/18/18 * Changed Haldol prn to thorazine prn to help with hallucinations, internal agitation,lability and difficulty sleeping due to aforementioned symptoms. * No new weekend labs * Vitals reviewed and noted below: Selected Entries 02/17/18 02/17/18 07:10 15:00 Temperature 98.2 F Pulse Rate 111 H 60 Respiratory 20 Rate Blood Pressure 107/76 111/77 Estimated Date of D/C: 02/22/18
--- NOTE | 2018-02-18 13:53 | CP.PCM.PN ---
<Yvan Nunez - Last Filed: 02/18/18 13:49> Subjective - Date & Time of Evaluation Date of Evaluation: 02/18/18 Time of Evaluation: 13:49 - Subjective Subjective: Podiatry progress note for attending Dr. Coker 47 year old male patient was seen and evaluated at bedside 17 days s/p partial hallux amputation on the left and right plantar wound. Patient is AAOx3 and denies of any acute overnight events. Patient denies any pain to bilateral LE. Patient denies any overnight F/N/V/C or SOB. Patient denies any other pedal complains at this time. Objective - Vital Signs/Intake and Output Vital Signs (last 24 hours): Temp Pulse Resp BP Pulse Ox 97.5 F L 112 H 20 77/51 L 99 02/18/18 07:30 02/18/18 13:05 02/18/18 07:30 02/18/18 13:05 02/13/18 20:29 - Medications Medications: Current Medications Aripiprazole (Abilify) 5 mg PO 1600 [facility] Last Admin: 02/17/18 17:02 Dose: 5 mg Aripiprazole (Abilify) 10 mg PO DAILY [facility] Last Admin: 02/18/18 08:06 Dose: 10 mg Chlorpromazine (Thorazine) 50 mg PO Q6 PRN; Protocol PRN Reason: Agitation Last Admin: 02/18/18 10:50 Dose: 50 mg Clonazepam (Klonopin) 0.25 mg PO BID PRN; Protocol PRN Reason: Anxiety Last Admin: 02/18/18 06:51 Dose: 0.25 mg Clonazepam (Klonopin) 0.75 mg PO HS [facility] PRN Reason: Protocol Fluoxetine HCl (Prozac) 50 mg PO DAILY [facility] Last Admin: 02/18/18 08:06 Dose: 50 mg Gabapentin (Neurontin) 300 mg PO TID [facility] Last Admin: 02/18/18 12:05 Dose: 300 mg Insulin Human Regular (Humulin R Low) 0 units SC ACHS [facility] PRN Reason: Protocol Last Admin: 02/18/18 11:51 Dose: 2 unit Metformin HCl (Glucophage) 1,000 mg PO BID [facility] Last Admin: 02/18/18 08:05 Dose: 1,000 mg Mupirocin (Bactroban Ointment) 1 gm TOP DAILY [facility] Last Admin: 02/18/18 08:43 Dose: 1 applic Nicotine (Nicoderm Cq) 1 patch TD DAILY [facility] Last Admin: 02/18/18 08:06 Dose: 1 patch Oxycodone/Acetaminophen (Percocet 5/325 Mg Tab) 2 tab PO Q6H PRN PRN Reason: Pain, moderate (4-7) Stop: 02/20/18 09:20 Last Admin: 02/18/18 08:43 Dose: 2 tab Sitagliptin Phosphate (Januvia) 100 mg PO DAILY [facility] Last Admin: 02/18/18 08:05 Dose: 100 mg Zaleplon (Sonata) 20 mg PO HS [facility] - Constitutional Appears: Well, Non-toxic, No Acute Distress - Head Exam Head Exam: ATRAUMATIC, NORMOCEPHALIC - Extremities Exam Additional comments: LE focused exam Vasc: DP/PT 1/4 b/l, Cap refill time: < 3 sec to all digits, Temp gradient warm to cool from proximal to distal, No edema noted b/l Neuro: Gross sensation intact b/l. Protective sensation mildly diminished b/l. Derm: Surgical site is intact with sutures with no signs dehiscence, no active drainage, no malodor, no erythema no clinical signs of active infection; A wound measuring approximately 1.0 cm x 0.5 cm with hyperkeratotic rim on the plantar lateral aspect of the right foot sub metatarsal head 4, wound base is granular, fibrous 80:20, no active drainage, no malodor, no probe to bone, No tracking or tunneling or undermining, no clinical signs of active infection. MSK: mild pain on palpation of the plantar wound. Muscle power intact 5/5 in all groups. - Neurological Exam Neurological Exam: Alert, Awake, Oriented x3 - Psychiatric Exam Psychiatric exam: Normal Affect, Normal Mood Assessment and Plan - Assessment and Plan (Free Text) Assessment: 47 year old male was evaluated 17 days s/p partial left hallux amp and for non- infected plantar right foot wound (Monet 1) Plan: Patient seen and evaluated at the bedside Discussed plan in details with attending Dr. Coker Labs, vitals and charts reviewed - afebrile, no leukocytosis Surgical site is fully intact with no active drainage Sites cleaned with saline and dressing applied using bactroban, xeroform, DSD and Marcial bandage on the right side and DSD and Marcial bandage on the left side. Patient to bear weight as tolerated in surgical shoe. Patient is table from podiatry standpoint. Podiatry will continue to follow patient while in-house <LaneevlynLukas hatfield - Last Filed: 02/20/18 15:49> Objective - Vital Signs/Intake and Output Vital Signs (last 24 hours): Temp Pulse Resp BP Pulse Ox 97.5 F L 118 H 20 109/61 99 02/20/18 06:56 02/20/18 13:00 02/20/18 06:56 02/20/18 13:00 02/13/18 20:29 - Medications Medications: Current Medications Aspirin (Ecotrin) 81 mg PO DAILY [facility] Last Admin: 02/20/18 08:16 Dose: 81 mg Atorvastatin Calcium (Lipitor) 10 mg PO DIN [facility] Last Admin: 02/19/18 18:37 Dose: Not Given Chlorpromazine (Thorazine) 50 mg PO HS [facility] PRN Reason: Protocol Chlorpromazine (Thorazine) 50 mg PO 0900,1400 [facility] PRN Reason: Protocol Last Admin: 02/20/18 12:59 Dose: 50 mg Clonazepam (Klonopin) 0.5 mg PO BID PRN; Protocol PRN Reason: Anxiety Last Admin: 02/19/18 11:41 Dose: 0.5 mg Clonazepam (Klonopin) 1 mg PO HS [facility] PRN Reason: Protocol Last Admin: 02/19/18 21:11 Dose: 1 mg Clotrimazole (Lotrimin Af 1%) 0 ml TOP DAILY [facility] Last Admin: 02/20/18 12:30 Dose: 1 cre Fluoxetine HCl (Prozac) 30 mg PO BID [facility] Last Admin: 02/20/18 08:16 Dose: 30 mg Gabapentin (Neurontin) 600 mg PO TID [facility] Last Admin: 02/20/18 12:29 Dose: 600 mg Insulin Human Regular (Humulin R Low) 0 units SC ACHS [facility] PRN Reason: Protocol Last Admin: 02/20/18 12:28 Dose: 2 unit Lactic Acid (Lac-Hydrin 12% Lotion (225 G)) 0 gm EXT DAILY [facility] Last Admin: 02/20/18 08:24 Dose: 1 cre Magnesium Oxide (Mag-Ox) 400 mg PO TID [facility] Stop: 02/21/18 23:59 Last Admin: 02/20/18 13:57 Dose: 400 mg Metformin HCl (Glucophage) 1,000 mg PO BID [facility] Last Admin: 02/20/18 08:16 Dose: 1,000 mg Metoprolol Succinate (Toprol Xl) 25 mg PO DAILY [facility] Mupirocin (Bactroban Ointment) 1 gm TOP DAILY [facility] Last Admin: 02/20/18 12:30 Dose: 1 applic Nicotine (Nicoderm Cq) 1 patch TD DAILY [facility] Last Admin: 02/20/18 08:23 Dose: 1 patch Sitagliptin Phosphate (Januvia) 100 mg PO DAILY [facility] Last Admin: 02/20/18 08:16 Dose: 100 mg Zolpidem Tartrate (Ambien) 5 mg PO HS [facility] PRN Reason: Protocol Last Admin: 02/19/18 21:11 Dose: 5 mg - Labs Labs: 02/20/18 07:05 02/20/18 07:05 Attending/Attestation - Attestation I have personally seen and examined this patient.: Yes I have fully participated in the care of the patient.: Yes I have reviewed all pertinent clinical information, including history, physical exam and plan: Yes
--- NOTE | 2018-02-18 15:48 | PN ---
Copied To: Darrin Arceo MD Attending MD: Darrin Arceo MD DATE: 02/18/2018 SUBJECTIVE: The patient was seen earlier today in the psychiatric floor. He is awake and he is ambulating, doing well. No nausea, no vomiting. Uneventful night. PHYSICAL EXAMINATION: VITAL SIGNS: Temperature is 98, blood pressure is 95/60, and respirations 16. HEENT: Unremarkable. NECK: Supple. LUNGS: Decreased breath sounds. HEART: Normal S1, S2. ABDOMEN: Soft. LABORATORY EXAMINATION: Noted. ASSESSMENT AND PLAN: This is a 47-year-old male seen in the psychiatric floor with a history of diabetes, hypertension, anxiety, schizophrenia, methicillin-resistant staphylococcus aureus, recent great toe amputation, history of depression, status post amputation. Currently off antibiotics, afebrile. No evidence of infection. Review of orders reveals the patient to be off antibiotics. He is at risk for developing nosocomial infections. Psychiatric care as per psychiatrist. Darrin Arceo MD
--- NOTE | 2018-02-18 23:39 | CON ---
Copied To: Li Siddiqi MD Attending MD: Li Siddiqi MD DATE: 02/14/2018 CHIEF COMPLAINT: Feet pain. HISTORY OF PRESENT ILLNESS: Mr. Henrry Martinez is 47 years old male, was admitted on the medical floor because of foot pain, and was having history of depression symptoms, inability to function, psychotic symptoms; after completing medical management, we transferred the patient to the psych. The patient has a history of mood spectrum disorder, multiple medical issues including diabetes mellitus, had recently had left toe amputation on 01/28/2018. The patient was initially brought for evaluation of depression and psychosis, but required medical admission. The patient was seen by Dr. Lo as a skin care consultant, now medically , cleared to transfer to Psych floor. PICC line was removed. PAST MEDICAL HISTORY: History of diabetes mellitus, hypertension, anxiety, schizophrenia, history of MRSA of great toe. HABITS: Light smoker, cigarettes less than 10. No drugs. No alcohol. ALLERGIES: THE PATIENT IS ALLERGIC WITH AMLODIPINE, APPLE, NUT, WALNUT. PHYSICAL EXAMINATION VITAL SIGNS: Reviewed by me. Temperature 98.1, pulse 72, respiratory rate 20, blood pressure 97/56, pulse oximetry 99. HEENT: Head: Normocephalic, atraumatic. Eyes: PERRLA. Extraocular muscles intact. Conjunctivae clear. Nose patent. Mucous membrane moist. NECK: Supple. No carotid bruit. No JVD or thyromegaly. CHEST: Bilaterally symmetrical. HEART: S1 and S2 positive. LUNGS: Clear to auscultation. ABDOMEN: Soft. Bowel sounds present. No organomegaly. EXTREMITIES: No edema. No cyanosis. NEUROLOGIC: Patient is awake and alert. Moving all 4 extremities. No focal deficit. MEDICATIONS: Abilify, Klonopin, Prozac, Haldol, insulin, oxycodone and Januvia. LABORATORY DATA: We do not have recent labs today, but glucose is 191, I reviewed the old labs. ASSESSMENT AND PLAN: Mr. Henrry Martinez is 47 years old male with past medical history of diabetes mellitus, hypertension, dyslipidemia, anxiety, depression, history of methicillin-resistant Staphylococcus aureus, hallux valgus osteomyelitis, status post amputation. The patient used to have peripherally inserted central catheter, is removed, currently off the antibiotics, no signs of infection, wound is clean, rightly he is doing dressing and pain management, pathology report from the amputation is needed to determine the involvement, still working on that, continue monitoring off the antibiotics. The patient has history of depression and psychosis, transferred to the psychiatric floor under psychiatrist, getting Joana Damon and Roland. We will follow up there. Li Siddiqi MD MTDD
--- NOTE | 2018-02-19 01:44 | PN ---
Copied To: Li Siddiqi MD Attending MD: Li Siddiqi MD DATE: 02/18/2018 SUBJECTIVE: The patient is a 47-year-old male. The patient was seen and examined on the bedside, looks little bit fatigue and tired. Today, blood pressure was low. nurse checked the blood pressure. No fever, no chills, no hematuria or hematochezia. PHYSICAL EXAMINATION VITAL SIGNS: Temperature 97.5, pulse 112, respiratory rate 20, blood pressure 77/51, repeat is 120/80, pulse oximetry 99. HEENT: Head normocephalic, atraumatic. Eyes PERRLA. Extraocular muscles intact. Conjunctivae clear. Nose patent. Mucous membrane moist. NECK: Supple. No carotid bruit. No JVD or thyromegaly. CHEST: Bilaterally symmetrical. HEART: S1 and S2 positive. LUNGS: Clear to auscultation. ABDOMEN: Soft. Bowel sounds positive. No organomegaly. EXTREMITIES: No edema, no cyanosis. NEUROLOGICAL: The patient is awake, alert. Moving all 4 extremities. No focal deficit. MEDICATIONS: Abilify, Thorazine, Klonopin, Prozac, Neurontin, insulin, Glucophage, Bactroban ointment, Nicoderm patch, Percocet, Januvia, Sonata. LABORATORY DATA: We do not have recent labs today, but I reviewed old labs. ASSESSMENT AND PLAN: Mr. Henrry Martinez is a 47-year-old male with status post , left hallux amputation 7-10 days ago and noninfected plantar right foot wound Monet 1 as per Podiatry, history of tachycardia, hypertension, hold Thorazine and Percocet by the nursing staff after discussing with psychiatrist, history of diabetes mellitus, hypertension, anxiety, schizoaffective disorder, methicillin-resistant Staphylococcus aureus. Currently off the antibiotics. No evidence of infection right now. Gastrointestinal and deep venous thrombosis prophylaxes. Getting Psych treatment. Repeat labs. We will follow up. Li Siddiqi MD [facility]ENTERSusie
[2018-02-19] MEDS: Insulin Reg-LOW-Coverage SC SCH ×4 (08:14→22:00)
[2018-02-19] MEDS: Oxycodone/Acetaminophen 5/325 mg Tab PO PRN ×2 (08:17→20:31)
[2018-02-19] MEDS: Mupirocin 2% Ointment 15 GM TUBE TOP SCH (12:37)
--- NOTE | 2018-02-19 16:21 | PCM.PYCHPN ---
Psychiatric Progress Note - Psychiatric Progress Note Patient seen today, length of contact: 30 minutes Patient Chief Complaint: "Somebody is playing tricks on me here, if it will continue this way, I will go to [facility]" Problems Identified/Issues Discussed: Suicide/ homicide prevention, past psychiatric h/o, current psychiatric symptoms , medical problems, risk/benefits and alternatives of medications, medications compliance, coping strategies, substance abuse h/o, relapse prevention, importance of follow up with psychiatrist and therapist, discharge plan. Medical Problems: see HPI and medical team notes for more detailed information Diagnostic Results: Lab Results 02/15/18 11:28: POC Glucose (mg/dL) 240 H 02/15/18 07:26: POC Glucose (mg/dL) 175 H 02/14/18 21:34: POC Glucose (mg/dL) 245 H 02/14/18 16:16: POC Glucose (mg/dL) 191 H 02/14/18 11:29: POC Glucose (mg/dL) 298 H 02/14/18 07:15: POC Glucose (mg/dL) 153 H 02/14/18 07:15: RPR Nonreactive 02/14/18 07:15: TSH 3rd Generation 1.93 02/14/18 07:15: Fasting Glucose 167 H, Triglycerides 161 H, Cholesterol 140, LDL Cholesterol Direct 88, HDL Cholesterol 23 L 02/13/18 20:59: POC Glucose (mg/dL) 175 H Vital Signs Temp Pulse Pulse Resp BP Pulse Ox 02/15/18 07:24 98.1 F 72 20 97/66 L 02/14/18 07:00 97.4 F L 75 16 98/73 L 02/13/18 20:53 98 H 17 02/13/18 20:29 97.7 F 98 H 17 105/76 99 Laboratory Results - last 24 hr 02/18/18 02/18/18 02/19/18 16:00 20:51 07:15 POC Glucose (mg/dL) 208 H 303 H 224 H Temp Pulse Resp BP Pulse Ox 98.1 F 76 20 135/94 H 99 02/19/18 07:11 02/19/18 07:11 02/19/18 07:11 02/19/18 07:11 02/13/18 20:29 DSM 5 Symptoms Update: shortly patient is 47 year old male, self reported history of "schizophrenia", history of mood spectrum disorder, multiple medical issues including diabetes, patient recently had left toe amputated on January 28, pt was initially brought in for evaluation of depression, psychosis, but required medical admission, pt was seen by and this business writer as banking consultant, pt was medically cleared yesterday, pt is off contact isolation, off antibiotics, transfer was uneventful. patient was seen and examined today at the treatment team meeting room, patient presented to be annoyed, irritable, angry, patient threatened "if you will continue playing tricks on me I will go to [facility]", this statement was referred to the feelings of "under medicated for my anxiety", patient also was fixated on pain medication which was adjusted by medical team. Patient said that he is not sleeping well, patient reported to feel anxious, patient obviously is upset, irritable, paranoid. at the same time team expressed concern about med seeking behavior. as per 's note pt was feeling "better"over the weekend. at the same time no agitation or aggression. Patient tolerates medications well, no side effects observed or reported, aims 0 , no EPS. Impression: Major depressive disorder with psychosis to be ruled out As per history rule out delusional disorder Rule out schizoaffective disorder Rule out bipolar disorder Rule out mood disorder due to general medical condition Medication Change: Yes (sonata d/c, abilify/klonopin/prozac increased, ambien started) Medical Record Reviewed: Yes Consults ordered or reviewed: mmedical consult appreciated, ID consult appreciated, podiatry consult appreciated, wound nurse consultation requested Mental Status Examination - Cognitive Function Orientation: Person, Place, Situation Memory: Intact Attention: WNL Concentration: Poor Association: WNL Fund of Knowledge: WNL - Mood Mood: Depressed, Anxious - Affect Affect: Flat, Other (a little labile) - Speech Speech: Appropriate - Formal Thought Process Formal Thought Process: Hallucinations ("stop playing tricks on me"), Delusions (reported paranoia on 02/17/18) - Suicidal Ideation Suicidal Ideation: No - Homicidal Ideation Homicidal Ideation: No Goal/Treatment Plan - Goal/Treatment Plan Need for Continued Stay: Remain at risks for inpatient hospitalization, Severe depression anxiety, Discharge may exacerbated symptoms, Severe functional impairment Progress Toward Problem(s) and Goals/Treatment Plan: Milieu/structure/supportive therapy Medical consult appreciated, see medical team note for more detailed info ID consult podiatry consult SW consultation for discharge plan and social issues Med management abilify 15mg po bid for psychosis and mood stabilization Prozac 60 mg po daily Klonopin 0.5bid and `1mg po hs for anxiety gabapentin 600 mg 3 times a day for diabetic neuropathy Sonata d/c ambien 5mg po hs Family involvement Follow up on labs Will monitor closely Pt was educated about risk/benefits and alternatives of medications, coping strategies (safety plan, suicide prevention), relapse prevention, importance of follow up with psychiatrist and therapist, stay away from drugs/alcohol/smoking Estimated Date of D/C: 02/22/18
--- NOTE | 2018-02-19 18:37 | CP.PCM.PN ---
Subjective - Date & Time of Evaluation Date of Evaluation: 02/19/18 Time of Evaluation: 18:23 - Subjective Subjective: Podiatry Progress Note - Drs. Zimmerman/John Paul 47 year old male patient seen and evaluated 18 days s/p left partial hallux amputation, and right plantar foot wound. Patient hemodynamically stable and NAD. No acute events overnight. No pain to bilateral LE. Dressings remain clean/ dry/intact. Denies N/V/F/D/C/SOB. No new complaints. Objective - Vital Signs/Intake and Output Vital Signs (last 24 hours): Temp Pulse Resp BP Pulse Ox 98.1 F 96 H 20 140/100 H 99 02/19/18 07:11 02/19/18 16:30 02/19/18 07:11 02/19/18 16:30 02/13/18 20:29 - Medications Medications: Current Medications Aripiprazole (Abilify) 10 mg PO DAILY [facility] Last Admin: 02/19/18 08:13 Dose: 10 mg Aripiprazole (Abilify) 10 mg PO 1600 TANGELA Aspirin (Ecotrin) 81 mg PO DAILY [facility] Last Admin: 02/19/18 13:32 Dose: 81 mg Atorvastatin Calcium (Lipitor) 10 mg PO DIN [facility] Last Admin: 02/19/18 17:03 Dose: 10 mg Clonazepam (Klonopin) 0.5 mg PO BID PRN; Protocol PRN Reason: Anxiety Last Admin: 02/19/18 11:41 Dose: 0.5 mg Clonazepam (Klonopin) 1 mg PO HS [facility] PRN Reason: Protocol Fluoxetine HCl (Prozac) 30 mg PO BID [facility] Last Admin: 02/19/18 16:07 Dose: 30 mg Gabapentin (Neurontin) 600 mg PO TID [facility] Last Admin: 02/19/18 17:07 Dose: 600 mg Haloperidol (Haldol) 5 mg PO Q6H PRN; Protocol PRN Reason: Agitation Last Admin: 02/19/18 15:08 Dose: 5 mg Insulin Human Regular (Humulin R Low) 0 units SC ACHS [facility] PRN Reason: Protocol Last Admin: 02/19/18 16:53 Dose: 3 unit Metformin HCl (Glucophage) 1,000 mg PO BID [facility] Last Admin: 02/19/18 16:10 Dose: 1,000 mg Mupirocin (Bactroban Ointment) 1 gm TOP DAILY [facility] Last Admin: 02/19/18 12:37 Dose: 1 applic Nicotine (Nicoderm Cq) 1 patch TD DAILY [facility] Last Admin: 02/19/18 08:14 Dose: 1 patch Oxycodone/Acetaminophen (Percocet 5/325 Mg Tab) 1 tab PO Q6H PRN PRN Reason: Pain, moderate (4-7) Stop: 02/20/18 09:20 Last Admin: 02/19/18 08:17 Dose: 1 tab Sitagliptin Phosphate (Januvia) 100 mg PO DAILY [facility] Last Admin: 02/19/18 08:13 Dose: 100 mg Zolpidem Tartrate (Ambien) 5 mg PO HS [facility] PRN Reason: Protocol - Constitutional Appears: Well, Non-toxic, No Acute Distress - Extremities Exam Additional comments: Bilateral LE focused Vasc: DP and PT pulses weakly palpable 1/4 b/l. CFT <3 seconds to all digits. Temperature gradient warm to warm. No edema noted. Neuro: Gross sensation diminished bilaterally. Derm: Left hallux partial amputation present with sutures intact with no signs of wound dehiscence present; no drainage; no malodor; no periwound erythema. Full thickness ulceration noted to plantar right foot sub met head 4 measuring approximately 1 x 0.5 x 0.3 cm - ulcer noted to have an 80% granular and 20% fibrous base; hyperkeratotic rim present; no drainage noted; no malodor; no probe to bone; no undermining; no tracking. Ortho: No pain on palpation noted to right foot plantar wound. s/p left partial hallux amputation. Muscle strength 5/5 for all dorsiflexors, plantarflexors, inverters, and everters b/l. - Neurological Exam Neurological Exam: Alert, Awake, Oriented x3 - Psychiatric Exam Psychiatric exam: Normal Affect, Normal Mood Assessment and Plan - Assessment and Plan (Free Text) Assessment: 47M POD#18 partial hallux amputation left foot, and right plantar foot wound Plan: Patient seen and evaluated alongside attending, Dr. Zimmerman Hallux amp appears stable at this time Right plantar foot wound stable, will continue to monitor Continue local wound care: -LLE betadine, DSD -RLE bacftroban, DSD Lotrimin & LacHydrin ordered for QD applications PT consulted -eval and dispense forefoot wedge shoe RLE WBAT in surgical shoe LLE Podiatry will continue to follow
--- NOTE | 2018-02-19 23:04 | CON ---
Copied To: Casi Bonilla MD Attending MD: Casi Bonilla MD DATE: 02/19/2018 LOCATION: The patient in psychiatric floor room 513, bed 1. HISTORY OF PRESENT ILLNESS: The patient has a known case of diabetes mellitus, insulin dependent; also previously had high blood pressure, later on he has lost weight and blood pressure was normal. He has history of anxiety, depression and admitted to psychiatric floor. The patient says occasionally he gets some palpitation, but right now, he is symptom free. He denies chest pain or shortness of breath or palpitation. Denies any dizziness, syncope or fall. PAST MEDICAL HISTORY: As mentioned before, the patient was treated for high blood pressure in the past, but he lost weight and his blood pressure was normal and he has known diabetes mellitus, he also had right shoulder surgery and he has also left foot large toe amputation due to osteomyelitis about three weeks ago. PERSONAL HISTORY: He smokes four cigarettes a day. Drinks every other days, 6 packs of beer and 1-2 glass of wine. ALLERGIES: DENIES ANY ALLERGIES. FAMILY HISTORY: Father had WI at age 62. Grandfather had diabetes. PHYSICAL EXAMINATION VITAL SIGNS: Blood pressure 135/94, respirations 20, pulse 76, temperature 98.1. HEENT: Head is normocephalic. Eyes: Pupils normal. Conjunctivae normal. Nose and throat normal. NECK: JVP low. Carotids equal. THORAX: AP diameter normal. LUNGS: Clear. CARDIOVASCULAR: S1 and S2. ABDOMEN: Soft. No tenderness. No organomegaly. EXTREMITIES: The patient has left foot large toe surgery. He has dressing on that large toe at the site of the amputation which was done about three weeks ago. LABORATORY DATA: Sugar 175 and repeat sugar 191. Fasting glucose 167. Triglycerides 161, cholesterol of 140, LDL 88, HDL 23, TSH normal at 1.93. IMAGING: The patient did not have an EKG, so I will order an EKG. PLAN: The patient is asymptomatic from palpitation this moment. The patient's EKG has not done and we will do the EKG and we will repeat CBC also. We will add Ecotrin 81 mg daily to therapy. Goal in the diabetic is to keep LDL below 70, his LDL is 88 and we will start Lipitor 10 mg daily. The patient will do Holter monitor as outpatient when he is more active and he is asymptomatic right now and we will also do a echo and stress test later. In the meantime, we are going to start Ecotrin and Lipitor and we will continue to follow closely with you. Told the patient to stop smoking and to stop drinking beer and wine. We will follow. Casi Bonilla MD
--- NOTE | 2018-02-19 23:55 | PN ---
Copied To: Darrin Arceo MD Attending MD: Darrin Arceo MD DATE: 02/19/2018 SUBJECTIVE: The patient is in bed in no acute distress. PHYSICAL EXAMINATION: VITAL SIGNS: Temperature is 98, blood pressure is 140/100, respiratory rate 20, heart rate of 76. HEENT: Unremarkable. NECK: Supple. LUNGS: Have decreased breath sounds. HEART: Normal S1, S2. ABDOMEN: Soft. LABORATORY EXAMINATION: Reviewed. Review of orders reveals the patient is off of antibiotics. ASSESSMENT AND PLAN: A 47-year-old male was seen in psychiatric center earlier today and with history of diabetes, hypertension, anxiety, schizophrenia, methicillin-resistant Staphylococcus aureus, recent great toe amputation, history of depression, status post amputation. Currently off of antibiotics. No evidence of infection. The patient is at risk for developing nosocomial infections. We will follow with you. Darrin Arceo MD
--- NOTE | 2018-02-20 02:33 | PN ---
Copied To: Li Siddiqi MD Attending MD: Li Siddiqi MD DATE: 02/19/2018 SUBJECTIVE: Patient is a 47-year-old male. Patient was seen and examined on the bedside, looking comfortable. No nausea, vomiting, or diarrhea. No hematuria or hematochezia. No swelling of the legs. No chest pain. No palpitation. Foot pain is getting better and now getting tapering dose of Percocet. PHYSICAL EXAMINATION: VITAL SIGNS: Temperature 98.1, pulse 76, respiratory rate 20, blood pressure 140/100, pulse oximetry 99%. HEENT: Head: Normocephalic, atraumatic. Eyes: PERRLA. Extraocular muscles intact. Conjunctivae clear. Nose patent. Mucous membrane moist. NECK: Supple. No carotid bruit, JVD, or thyromegaly. CHEST: Bilaterally symmetrical. HEART: S1 and S2 positive. LUNGS: Clear to auscultation. ABDOMEN: Soft. Bowel sounds present. No organomegaly. EXTREMITIES: No edema. No cyanosis. NEUROLOGIC: Patient is awake and alert. Moving all four extremities. No focal deficit. MEDICATIONS: Abilify, Ecotrin, Lipitor, Klonopin, Prozac, Neurontin, Haldol, insulin, Glucophage, Bactroban, Nicoderm, Percocet, Januvia, Ambien. LABORATORY DATA: We do not have recent lab today, but I reviewed old labs. ASSESSMENT AND PLAN: Mr. Henrry Martinez is a 47-year-old male, postoperative day 18, partial hallux amputation on left foot, right plantar foot wound, getting wound care from Podiatry. Seen by Dr. Arceo, Infectious Disease; Dr. Bonilla, line supervisor; and Dr. Ute Javier, psychiatrist. Has a history of diabetes mellitus, hypertension, anxiety, schizophrenia, methicillin-resistant Staphylococcus aureus. No evidence of infection. The patient is at risk for developing nosocomial infections, but currently off of antibiotics. Cardiology consult called with Dr. Bonilla for tachycardia. Appreciated Dr. Bonilla's input also. History of right shoulder surgery. History of tachycardia and hypotension. No more palpitation. Continue aspirin. According to Dr. Bonilla when patient get discharged, can put Holter monitor as outpatient. Meanwhile, continue present treatment. Repeat labs. We will follow up. Li Siddiqi MD
[2018-02-20] MEDS: Oxycodone/Acetaminophen 5/325 mg Tab PO PRN (06:43)
[2018-02-20 06:57] VITALS: TEMP 97.5
[2018-02-20 07:23] LABS: BASO # 0.06 K/mm3 (0.0-2.0); BASO % 0.9 % (0.0-3.0); EOS # 0.5 (0.0-0.7); EOS % 7.3 % (1.5-5.0); GRAN # 2.08 (1.4-6.5); GRAN % 32.8 % (50.0-68.0); HEMOGLOBIN 12.9 g/dL (14.0-18.0); LYMPH # 3.3 (1.2-3.4); LYMPH % 51.3 % (22.0-35.0); MEAN CELL VOLUME 92.6 fl (80.0-105.0); MEAN CORPUSCULAR HEMOGLOBIN 32.9 pg (25.0-35.0); MEAN CORPUSCULAR HGB CONC 35.5 g/dl (31.0-37.0); MEAN PLATELET VOLUME 10.6 fl (7.0-11.0); MONO # 0.5 (0.1-0.6); MONO % 7.7 % (1.0-6.0); RBC 3.92 10^6/uL (3.5-6.1); RED CELL DISTRIBUTION WIDTH 12.2 % (11.5-14.5); WHITE BLOOD COUNT 6.3 10^3/ul (4.5-11.0)
[2018-02-20 07:36] LABS: BLOOD UREA NITROGEN 11 mg/dL (7-21); CALCIUM 9.6 mg/dL (8.4-10.5); GFR NON-AFRICAN AMERICAN > 60
--- NOTE | 2018-02-20 07:42 | CARD ---
APPROVED REPORT Date of service: 02/19/2018 EKG Measurement Heart [id number] <Conclusion> Normal sinus rhythm PRWP NSSTW changes No change
[2018-02-20] MEDS: Insulin Reg-LOW-Coverage SC SCH ×4 (08:17→21:08)
[2018-02-20] MEDS: Ammonium Lactate 12% Lotion (225 g) EXT SCH (08:24)
[2018-02-20] MEDS ORDERED: Magnesium Oxide 400 mg Tab UD PO STA (12:19)
[2018-02-20] MEDS ORDERED: Metoprolol Succinate 25 mg XL Tab PO ONE (12:27)
[2018-02-20] MEDS: Clotrimazole 1% Top Soln(10 ml) TOP SCH (12:30)
[2018-02-20] MEDS: Mupirocin 2% Ointment 15 GM TUBE TOP SCH (12:30)
--- NOTE | 2018-02-20 13:16 | PN ---
Copied To: Darrin Arceo MD Attending MD: Darrin Arceo MD DATE: 02/20/2018 SUBJECTIVE: The patient is in bed, in no acute distress, nontoxic, was seen in psychiatric floor. PHYSICAL EXAMINATION: VITAL SIGNS: Temperature of 97, blood pressure is 110/70, respiratory rate of 18. HEENT: Examination of HEENT is unremarkable. NECK: Supple. LUNGS: Have decreased breath sounds are normal. HEART: S1, S2. ABDOMEN: Soft, nontender. LABORATORY DATA: Laboratory examination reveals a white count of 6.3, hemoglobin of 12. Chemistries are noted. RPR is nonreactive. ASSESSMENT AND PLAN: A 47-year-old male who was seen in psychiatric floor earlier today and diabetes, hypertension, anxiety, schizophrenia, methicillin-sensitive Staphylococcus aureus and recent great toe amputation, history of depression, status post amputation, currently off of antibiotics. No evidence of infection at this point. However, the patient is at risk for developing nosocomial infections. Darrin Arceo MD
[2018-02-20] MEDS: Magnesium Oxide 400 mg Tab UD PO SCH ×2 (13:57→17:23)
--- NOTE | 2018-02-20 15:52 | PCM.PYCHPN ---
Psychiatric Progress Note - Psychiatric Progress Note Patient seen today, length of contact: 30 minutes Patient Chief Complaint: "I am in pain, percocet needs to be resumed" Problems Identified/Issues Discussed: Suicide/ homicide prevention, past psychiatric h/o, current psychiatric symptoms , medical problems, risk/benefits and alternatives of medications, medications compliance, coping strategies, substance abuse h/o, relapse prevention, importance of follow up with psychiatrist and therapist, discharge plan. Medical Problems: see HPI and medical team notes for more detailed information Diagnostic Results: Lab Results 02/15/18 11:28: POC Glucose (mg/dL) 240 H 02/15/18 07:26: POC Glucose (mg/dL) 175 H 02/14/18 21:34: POC Glucose (mg/dL) 245 H 02/14/18 16:16: POC Glucose (mg/dL) 191 H 02/14/18 11:29: POC Glucose (mg/dL) 298 H 02/14/18 07:15: POC Glucose (mg/dL) 153 H 02/14/18 07:15: RPR Nonreactive 02/14/18 07:15: TSH 3rd Generation 1.93 02/14/18 07:15: Fasting Glucose 167 H, Triglycerides 161 H, Cholesterol 140, LDL Cholesterol Direct 88, HDL Cholesterol 23 L 02/13/18 20:59: POC Glucose (mg/dL) 175 H Vital Signs Temp Pulse Pulse Resp BP Pulse Ox 02/15/18 07:24 98.1 F 72 20 97/66 L 02/14/18 07:00 97.4 F L 75 16 98/73 L 02/13/18 20:53 98 H 17 02/13/18 20:29 97.7 F 98 H 17 105/76 99 Laboratory Results - last 24 hr 02/18/18 02/18/18 02/19/18 16:00 20:51 07:15 POC Glucose (mg/dL) 208 H 303 H 224 H Temp Pulse Resp BP Pulse Ox 98.1 F 76 20 135/94 H 99 02/19/18 07:11 02/19/18 07:11 02/19/18 07:11 02/19/18 07:11 02/13/18 20:29 DSM 5 Symptoms Update: shortly patient is 47 year old male, self reported history of "schizophrenia", history of mood spectrum disorder, multiple medical issues including diabetes, patient recently had left toe amputated on January 28, pt was initially brought in for evaluation of depression, psychosis, but required medical admission, pt was seen by and this program writer as data security consultant, pt was medically cleared yesterday, pt is off contact isolation, off antibiotics, transfer was uneventful. patient was seen and examined today at the treatment team meeting room, patient presented to be annoyed, irritable, angry, patient is upset because his Percocet was discontinued by medical team. Patient asked Thorazine to be resumed , patient is very fixated on medications, at the same time patient denied that he has any thoughts of killing himself or others, this program writer discussed discharge plan for , patient said that he will be followed up with Dr. Siddiqi in the community, patient reports that he has follow-up appointment with slitter operator Dr. Arreguin at [facility] already. tx team expressed concern about med seeking behavior. as per 's note pt was feeling "better"over the weekend. at the same time no agitation or aggression. Patient tolerates medications well, no side effects observed or reported, aims 0 , no EPS. Impression: Major depressive disorder with psychosis to be ruled out As per history rule out delusional disorder Rule out schizoaffective disorder Rule out bipolar disorder Rule out mood disorder due to general medical condition Medication Change: Yes (Abilify was discontinued, Thorazine started) Medical Record Reviewed: Yes Mental Status Examination - Cognitive Function Orientation: Person, Place, Situation Memory: Intact Attention: WNL Concentration: Poor Association: WNL Fund of Knowledge: WNL - Mood Mood: Depressed, Anxious - Affect Affect: Flat, Other (a little labile) - Speech Speech: Appropriate - Formal Thought Process Formal Thought Process: Hallucinations ("stop playing tricks on me"), Delusions (reported paranoia on 02/17/18) - Suicidal Ideation Suicidal Ideation: No - Homicidal Ideation Homicidal Ideation: No Goal/Treatment Plan - Goal/Treatment Plan Need for Continued Stay: Remain at risks for inpatient hospitalization, Severe depression anxiety, Discharge may exacerbated symptoms, Severe functional impairment Progress Toward Problem(s) and Goals/Treatment Plan: Milieu/structure/supportive therapy Medical consult appreciated, see medical team note for more detailed info ID consult podiatry consult appreciated SW consultation for discharge plan and social issues Med management abilify continued Prozac 60 mg po daily Klonopin 0.5bid and `1mg po hs for anxiety gabapentin 600 mg 3 times a day for diabetic neuropathy Sonata d/c ambien 5mg po hs Family involvement Follow up on labs Will monitor closely Pt was educated about risk/benefits and alternatives of medications, coping strategies (safety plan, suicide prevention), relapse prevention, importance of follow up with psychiatrist and therapist, stay away from drugs/alcohol/smoking Estimated Date of D/C: 02/22/18
[2018-02-20] MEDS ORDERED: Oxycodone/Acetaminophen 5/325 mg Tab PO PRN (15:55)
[2018-02-20] MEDS ORDERED: Oxycodone/Acetaminophen 5/325 mg Tab PO ONE (16:00)
--- NOTE | 2018-02-20 17:29 | PN ---
Copied To: Casi Medina MD Attending MD: Casi Medina MD DATE: 02/20/2018 REASON FOR CONSULTATION AND FOLLOWUP: Palpitation, cardiac evaluation, active smoker, diabetes, and hypertension. Admitted to the psych floor complaining of palpitations occasionally. Patient denies any chest pain, shortness of breath, denies any palpitation. OBJECTIVE: GENERAL: Not in apparent distress, lying flat in the bed. VITAL SIGNS: Temperature afebrile, heart rate 75, and blood pressure 110/78. HEENT: PERRLA, intact. NECK: Supple. No carotid bruit or thyromegaly. CHEST: Clear to auscultation. HEART: S1 and S2, regular. ABDOMEN: Soft. EXTREMITIES: Clubbing and cyanosis negative. LABORATORY DATA: WBC 6.3, hemoglobin 12.9, hematocrit 36.3, and platelet count 219. Chemistry shows sodium of 140, potassium 4, chloride 99, carbon dioxide 28, anion gap of 17. BUN 11, creatinine 0.7. Magnesium 1. IMPRESSION: 1. Palpitation, resolved. 2. Severe hypomagnesemia. 3. Diabetes. 4. Hypertension. 5. Hyperlipidemia. RECOMMENDATIONS: We will get lipid profile, TSH, and hemoglobin A1c. Patient was started on Lipitor, but patient is saying that he wants to get one more time the blood test, so he wanted to make sure that the cholesterol is elevated, then he will take the Lipitor, yesterday ordered by Dr. Bonilla, but patient is refusing today. Recommendation to get echo to assess LV function. Get the lipid profile as patient wants to make sure that cholesterol is elevated as mentioned in Dr. Bonilla's note yesterday. Goal is to keep LDL less than 70 as the patient yesterday was 88, so we will repeat lipid profile fasting tomorrow, TSH, and hemoglobin A1c. Put low dose beta-jt as well, aggressively supplement potassium and put low-doses of beta-jt. A Holter was planned and ordered, but this cannot be done in the psych floor, so we will get the patient a stress test as an outpatient. We will get an echo to rule out any structural heart disease. We will follow with you. Also, we will start low dose of beta-jt. Thank you, Dr. Javier, for providing us opportunity in taking care of the patient, Henrry Martinez. Casi Medina MD
--- NOTE | 2018-02-20 17:49 | PN ---
Copied To: Lukas Coker DPM Attending MD: Lukas Coker DPM DATE: 02/20/2018 SUBJECTIVE: A 47-year-old male seen at bedside for continued evaluation and management of a left partial hallux amputation and right diabetic plantar foot ulceration. The patient is resting comfortably and denies any fever, chills, nausea or vomiting. He offers no new complaints. He has his forefoot offloading shoe which he is using on his right foot to offload his right diabetic foot ulceration. The patient's laboratory findings reveal white count of 6.3, hemoglobin of 12.9, hematocrit of 36.3, platelet count of 219. Vital signs revealed temperature of 97.5, pulse rate of 118, blood pressure of 109/61, respiratory rate of 20. OBJECTIVE: Weakly palpable pedal pulses noted bilaterally. Temperature gradient is within normal limits bilaterally. Capillary filling time is within normal limits bilaterally. There is noted to be no lower extremity edema. Protective sensation is diminished using 5.07 g monofilament wire testing bilaterally. There is a partially amputated left hallux that presents with sutures intact and with no signs of wound dehiscence. There is no drainage. There is no malodor. There are no signs of cellulitis. There is a full-thickness plantar ulceration located on the right foot submet head 4 that measures approximately 1 cm x 0.5 cm x 0.3 cm. The base is primarily granular with some fibrotic tissue. There is noted to be no drainage and no malodor. It does not probe to tendon or bone. There is no underlying abscess formation noted. ASSESSMENT: A 47-year-old male, status post 19 days partial hallux amputation on the left foot and a full-thickness right diabetic plantar foot ulceration. PLAN: The patient was seen and examined. Both areas were cleansed with normal sterile saline and application of a sterile Adaptic, Betadine solution and a dry sterile dressing was applied to the amputation site. The right foot ulceration was dressed with Xeroform, sterile 4 x 4, abdominal pad and a dry sterile dressing. His forefoot offloading shoe is intact. We will continue with Lac-Hydrin and Lotrimin applications once daily. His left surgical shoe has broken and we will order a new shoe. The patient will be seen and followed daily. Lukas Coker DPM [facility] # [id number]
--- NOTE | 2018-02-21 03:34 | PN ---
Copied To: Li Siddiqi MD Attending MD: Li Siddiqi MD DATE: 02/20/2018 SUBJECTIVE: Patient is a 47-year-old male. Patient was seen and examined on the bedside, looking comfortable. Palpitation is better. No chest pain, shortness of breath. No fever, no chills. PHYSICAL EXAMINATION: VITAL SIGNS: Temperature, patient is afebrile; heart rate 75; blood pressure 110/78; respiratory rate 18. HEENT: Head: Normocephalic, atraumatic. Eyes: PERRLA. Extraocular muscles intact. Conjunctivae clear. Nose patent. Mucous membrane moist. NECK: Supple. No carotid bruit, JVD, or thyromegaly. CHEST: Bilaterally symmetrical. HEART: S1 and S2 positive. LUNGS: Clear to auscultation. ABDOMEN: Soft. Bowel sounds present. No organomegaly. EXTREMITIES: No clubbing or cyanosis. LABORATORY DATA: White blood cells count 6.3, hemoglobin 12.9, hematocrit 36.3, platelets 219. Sodium 140, potassium 4. BUN 11, creatinine 0.7. Magnesium 1. MEDICATIONS: Reviewed by me. ASSESSMENT: Mr. Henrry Martinez is a 47-year-old male with palpitation, getting better; severe hypomagnesemia, replaced; diabetes mellitus, on the sliding scale; hypertension, getting treatment; hypercholesterolemia; psychosis. PLAN: Continue Lipitor, Ambien for insomnia, Bactroban local treatment on the foot, continue metformin sliding scale, Januvia, Klonopin. ID, Cardiology, Podiatry and Psych are on the case. I read all progress notes, appreciated help. Patient has history of partial hallux amputation on left foot, right plantar foot getting wound care from Podiatry. No antibiotics per ID. History of schizophrenia, anxiety. Gastrointestinal and deep vein thrombosis prophylaxes. Discussion done with Dr. Ute Javier. Repeat labs. We will follow up. Li Siddiqi MD
[2018-02-21 07:17] VITALS: BP 111/78; PULSE 72
[2018-02-21 07:56] LABS: BASO # 0.09 K/mm3 (0.0-2.0); BASO % 1.5 % (0.0-3.0); EOS # 0.5 (0.0-0.7); EOS % 8.2 % (1.5-5.0); GRAN # 2.3 (1.4-6.5); HEMOGLOBIN 12.1 g/dL (14.0-18.0); LYMPH # 2.7 (1.2-3.4); LYMPH % 43.9 % (22.0-35.0); MEAN CORPUSCULAR HEMOGLOBIN 32.4 pg (25.0-35.0); MEAN CORPUSCULAR HGB CONC 34.8 g/dl (31.0-37.0); MEAN PLATELET VOLUME 11.1 fl (7.0-11.0); MONO # 0.6 (0.1-0.6); MONO % 9.4 % (1.0-6.0); RBC 3.74 10^6/uL (3.5-6.1); RED CELL DISTRIBUTION WIDTH 12.2 % (11.5-14.5); WHITE BLOOD COUNT 6.2 10^3/ul (4.5-11.0)
[2018-02-21] MEDS ORDERED: Metoprolol Succinate 25 mg XL Tab PO SCH (08:00)
[2018-02-21] MEDS: Insulin Reg-LOW-Coverage SC SCH ×2 (08:10→12:56)
[2018-02-21] MEDS: Magnesium Oxide 400 mg Tab UD PO SCH (08:17)
[2018-02-21] MEDS ORDERED: Magnesium Oxide 400 mg Tab UD PO STA (10:08)
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
--- NOTE | 2018-02-21 11:09 | PN ---
Copied To: Casi Medina MD Attending MD: Casi Medina MD DATE: 02/21/2018 REASON FOR CONSULTATION AND FOLLOWUP: Palpitation, cardiac evaluation, active smoker, history of diabetes, admitted to the psych floor complaining of palpitations occasionally. SUBJECTIVE: The patient denies any chest pain, shortness of breath. Denies any palpitation, feels lot better. OBJECTIVE: GENERAL: Not in apparent distress. VITAL SIGNS: Temperature afebrile, heart rate 72, blood pressure 111/73. HEENT: PERRLA, intact. NECK: Supple. No carotid bruit or thyromegaly. CHEST: Clear to auscultation. HEART: S1 and S2, regular. ABDOMEN: Soft. EXTREMITIES: Clubbing and cyanosis negative. LABORATORY DATA: Blood workup as follows: WBC 6.8, hemoglobin 12.8, hematocrit 34.8, and platelet count 225. Chemistry shows phosphorus 4.6, magnesium 1.2, triglycerides 163, cholesterol 70, LDL 23. Yesterday, magnesium was 1. IMPRESSION: 1. Palpitation, resolved. 2. Severe hypomagnesemia. 3. Diabetes. 4. Hypertension. 5. Hyperlipidemia. RECOMMENDATIONS: Aggressively supplement potassium. Repeat lab shows LDL 70, HDL 23, cholesterol 163 and cholesterol 120, so we will discontinue Lipitor. The patient does not want and the cholesterol within normal limit, but we will aggressively supplement magnesium. Continue low-dose beta jt to prevent tachycardia and palpitation. Since metoprolol was given, the patient feels lot better. No more palpitation. Followup echo. The patient does not want to take Lipitor, so repeat cholesterol level was done and mentioned to the patient. We will follow with you. Thank you, Dr. Javier, for providing us opportunity in taking care of the patient, Henrry Martinez. Casi Medina MD
[2018-02-21] MEDS: Ammonium Lactate 12% Lotion (225 g) EXT SCH ×2 (11:37→11:38)
[2018-02-21] MEDS: Mupirocin 2% Ointment 15 GM TUBE TOP SCH (11:37)
[2018-02-21] MEDS: Clotrimazole 1% Top Soln(10 ml) TOP SCH (11:38)
[2018-02-21] MEDS ORDERED: Magnesium Oxide 400 mg Tab UD PO SCH (13:00)
--- NOTE | 2018-02-21 17:32 | CARD ---
APPROVED REPORT Date of service: 02/20/2018 EXAM: Two-dimensional and M-mode echocardiogram with Doppler and color Doppler. INDICATION Palpitations LVFX 2D DIMENSIONS Left Atrium (2D)3.0 (1.6-4.0cm)IVSd1.1 (0.7-1.1cm) LVDd4.8 (3.9-5.9cm)PWd1.3 (0.7-1.1cm) LVDs3.3 (2.5-4.0cm)FS (%) 30.7 % LVEF (%)58.3 (>50%) M-Mode DIMENSIONS Aortic Root3.90 (2.2-3.7cm)Aortic Cusp Exc.1.90 (1.5-2.0cm) Aortic Valve AoV Peak Yyoxgtwo331.0cm/Lyly Peak GR.5mmHg Mitral Valve E/A ratio0.0 TDI E/Lateral E'0.0E/Medial E'0.0 LEFT VENTRICLE The left ventricle is normal size. There is mild concentric left ventricular hypertrophy. Proximal septal thickening is noted. The left ventricular function is normal.EF-55-60% There is normal LV segmental wall motion. The left ventricular diastolic function is normal. No left ventricle thrombus noted on this study. There is no ventricular septal defect visualized. There is no left ventricular aneurysm. There is no mass noted in the left ventricle. RIGHT VENTRICLE The right ventricle is normal size. There is normal right ventricular wall thickness. The right ventricular systolic function is normal. ATRIA The left atrium size is normal. The right atrium size is normal. The interatrial septum is intact with no evidence for an atrial septal defect. AORTIC VALVE The aortic valve is thickened but opens well. No aortic regurgitation is present. There is no aortic valvular stenosis. There is no aortic valvular vegetation. MITRAL VALVE The mitral valve is thickened but opens well. Mitral regurgitation is trace. There is no mitral valve stenosis. There is no evidence of mitral valve prolapse. TRICUSPID VALVE The tricuspid valve leaflets are thickened , but open well. There is trace tricuspid regurgitation. There is no tricuspid valve stenosis. There is no tricuspid valve prolapse or vegetation. PULMONIC VALVE The pulmonic valve is not well visualized. GREAT VESSELS The aortic root is normal in size. The ascending aorta is normal in size. The pulmonary artery is normal. The IVC is normal in size and collapses >50% with inspiration. PERICARDIAL EFFUSION There is no pleural effusion. There is no pericardial effusion. <Conclusion> Normal chamber Size. Ef-55-60% Mild conc LVH, Trace MR/TR
--- NOTE | 2018-02-21 22:23 | PN ---
Copied To: Darrin Arceo MD Attending MD: Darrin Arceo MD DATE: 02/21/2018 SUBJECTIVE: The patient is in bed, seen earlier this morning in psychiatric floor. No fevers. No chills. PHYSICAL EXAMINATION: VITAL SIGNS: Temperature is 97, blood pressure is 120/70, respiratory rate of 20. HEENT: Examination of HEENT is unremarkable. NECK: Supple. LUNGS: Decreased breath sounds. HEART: Normal S1 and S2. ABDOMEN: Soft, nontender. LABORATORY DATA: Laboratory examination reveals a white count of 6, hemoglobin 12, platelets of 225. Creatinine is noted. ASSESSMENT AND PLAN: A 47-year-old male who was seen early this morning in psychiatric floor, doing well, diabetes, hypertension, anxiety, schizophrenia, sensitive Staphylococcus aureus, history of great toe amputation, history of depression, status post amputation. Off of antibiotics. Continue with local care and follow up with primary medical doctor and Podiatry closely as outpatient. Darrin Arceo MD
--- NOTE | 2018-02-22 05:33 | PN ---
Copied To: Li Siddiqi MD Attending MD: Li Siddiqi MD DATE: 02/21/2018 SUBJECTIVE: The patient was seen in the morning, looking comfortable. Happy to go home. Palpitation is better. No nausea, vomiting or diarrhea. No hematuria or hematochezia. Suprapubic pain is better. Anxiety is better. PHYSICAL EXAMINATION VITAL SIGNS: Temperature 98.6, pulse 72, respiratory rate 18, blood pressure 110/70. HEENT: Head normocephalic, atraumatic. Eyes, PERRLA. Extraocular muscles intact. Conjunctivae clear. Nose patent. Mucous membranes moist. NECK: Supple. No carotid bruits. No JVD or thyromegaly. CHEST: Bilaterally symmetrical. HEART: S1 and S2 positive. LUNGS: Clear to auscultation. ABDOMEN: Soft. Bowel sounds positive. No organomegaly. EXTREMITIES: No edema, no cyanosis. NEUROLOGICAL: Patient is awake and alert. Moving all 4 extremities. No focal deficits. LABORATORY DATA: White blood cell 6.8, hemoglobin 12.8, hematocrit 34.8, platelets 225. triglyceride 163, cholesterol 70, LDL 23, magnesium 1. ASSESSMENT AND PLAN: Mr. Henrry Martinez is a 47-year-old male, came with palpitation, resolved, Cardiology is on the case, severe hypomagnesemia, replaced, even discharged the patient with magnesium oxide, diabetes. The patient was on sliding scale, stable, hypertension, gave metoprolol upon discharge, hyperlipidemia, gave statin. The patient has history of schizophrenia, supplemental potassium. Repeat labs shows LDL 7023, cholesterol 153, so we discontinued Lipitor. Patient does not want medications within normal limits. We will aggressively supplement magnesium, continue low-dose beta-jt to prevent tachycardia. Gastrointestinal and deep venous thrombosis prophylaxes. Repeat labs. The patient was discharged, followup as outpatient. Need pain management as out pt . Li Siddiqi MD MTDD
== END 2018-02-21 18:32 | disposition home or self-care (01) | DRG 885 ==
LOC: PSYC 20:21
PROVIDERS: ADMIT Psychiatry & Neurology Psychiatry; ATTEND Psychiatry & Neurology Psychiatry
DX: F32.3 Major depressive disorder, single episode, severe with psychotic features (principal); M86.8X7 Other osteomyelitis, ankle and foot; E11.69 Type 2 diabetes mellitus with other specified complication; E11.40 Type 2 diabetes mellitus with diabetic neuropathy, unspecified; E11.621 Type 2 diabetes mellitus with foot ulcer; L97.519 Non-pressure chronic ulcer of other part of right foot with unspecified severity; I10 Essential (primary) hypertension; F41.9 Anxiety disorder, unspecified; E78.5 Hyperlipidemia, unspecified; E78.00 Pure hypercholesterolemia, unspecified; E83.42 Hypomagnesemia; R00.2 Palpitations; F17.210 Nicotine dependence, cigarettes, uncomplicated; G47.00 Insomnia, unspecified; Z89.412 Acquired absence of left great toe; Z79.4 Long term (current) use of insulin; Z86.14 Personal history of Methicillin resistant Staphylococcus aureus infection; Z83.3 Family history of diabetes mellitus; Z82.49 Family history of ischemic heart disease and other diseases of the circulatory system